=== PATIENT | female | born 1940 | race Caucasian/White ===

== ENCOUNTER 2017-05-18 15:46 | Emergency (ER) | payer MEDICARE, BC ==
[~2017-05-18] VITALS: Ht 157.5 cm; Wt 81.6 kg
[~2017-05-18 15:46] MED LIST: AMLODIPINE BESY10 MG PO; CARVEDILOL12.5 MG PO; CEFDINIR300 MG PO; COMP-AIR NEBUL1 EACH; CYMBALTA30 MG PO; DOXYCYCLINE HY100 MG PO; FUROSEMIDE40 MG PO; LANTUS100 UNITS/ SQ; LEVOTHYROXINE112 MCG PO; NOVOLIN R100 UNIT/1; PREDNISONE5 MG PO; [UNRECOGNIZED DRUG - OTHER] NEB
[2017-05-18] MEDS ORDERED: ASPIRIN 81 MG CHEW TAB PO ONE (19:15)
== END 2017-05-18 19:53 | disposition short-term general hospital (02) ==
LOC: ER 15:46
DX: R51 Headache (principal)

== ENCOUNTER → 2017-07-17 | Day surgery (SDC) | payer MEDICARE, BC ==
[~2017-07-17] VITALS: Ht 152.4 cm; Wt 90.7 kg
[~2017-07-17] MED LIST changes: +LIDOCAINE 1% W/EPINEPHRINE 20 ML VIAL ONE
--- OUTSIDE RECORDS SUMMARY | 2017-07-17 12:29 | XMS REPORT | Continuity of Care Document ---
Author Author [facility] Organization [facility] Address [address] [place] [address] Phone Unavailable Care Team Providers Care Sole Conditioner Name Role Phone ALMAZ NAYLOR PCP Insurance Providers Guarantor Mira Yang Address [address] [place] [address] Email [email or web address] Payer [facility] [email or web address] Policy Number [id number] Subscriber's Name AmeenaMira schrader Relationship 18 Self / Same As Patient Effective Date 14 Payer Medicare A & B Policy Number [id number] Subscriber's Name Mira Yang Relationship 18 Self / Same As Patient Group Number [id number] Group Name RETIRED Effective Date 07 Advance Directives Directive Response Recorded Date/Time Does the patient have an advance directive? No 05/18/17 5:14pm If yes, is advance directive on file with [facility]? No 04/23/14 11:56pm If not on file with [facility] will patient provide a copy? No 05/18/17 5:14pm Do you have a Directive to Physician? No 05/18/17 5:14pm Do you have a Medical Power of Machine Farmworker? No 05/18/17 5:14pm Do you have an out of hospital Do Not Resuscitate Order? No 05/18/17 5:14pm Do you have any special needs we should be aware of? No 05/18/17 5:14pm Do you have a support person here with you today? Yes 05/18/17 5:14pm Did patient receive Notice of Privacy Practices? Yes 05/18/17 5:14pm Did patient receive patient rights and responsibilities? Yes 05/18/17 5:14pm Problems Medical Problem Onset Date Status Hypoxia 04/23/2014 Acute Pneumonia 04/23/2014 Acute Medications Current Home Medications Medication Dose Units Route Directions Days Qty Instructions Start Date Amlodipine Besylate 10 Mg Tablet 5 Mg Oral Every 12 Hours 30 Tab Carvedilol 12.5 Mg Tablet 12.5 Mg Oral Daily 60 Tab Cefdinir (Omnicef) 300 Mg Capsule 1 Cap Oral Twice A Day 10 Days Duloxetine Hcl (Cymbalta) 30 Mg Capsule.dr 60 Mg Oral Daily 30 Cap Furosemide 40 Mg Tablet 40 Mg Oral Daily 30 Tab Insulin Glargine (Lantus) 100 Units/Ml Ml 45 Sub-Q Bedtime Insulin Regular, Human (Novolin R) 100 Unit/1 Ml Vial [id number] 2.5 Ml Nebu 2.5 Ml Nebullizer Rt Q6h 30 Days 05/01/14 Levothyroxine Sodium 112 Mcg Tablet 112 Mcg Oral Daily 30 Tab Prednisone 5 Mg Tablet 5 Mg Oral Daily Past Home Medications Medication Directions Ordered Status Doxycycline Hyclate 100 Mg Capsule, 100 Mg Oral Daily Discontinued Social History Social History Problem Response Recorded Date/Time Onset Date Status Hx Psychiatric Problems No 04/23/2014 11:56pm Not Applicable Not Applicable Hx Eating Disorder No 04/23/2014 11:56pm Not Applicable Not Applicable Hx Substance Use Disorder No 04/23/2014 11:56pm Not Applicable Not Applicable Hx Depression Yes 04/23/2014 11:56pm Not Applicable Not Applicable Hx Alcohol Use Yes 04/23/2014 11:56pm Not Applicable Not Applicable Hx Substance Use Treatment No 04/23/2014 11:56pm Not Applicable Not Applicable Hx Physical Abuse No 04/23/2014 11:56pm Not Applicable Not Applicable Hospital Discharge Instructions No hospital discharge instruction information available. Plan of Care Discharge Date 05/18/17 7:53pm Disposition REQUEST WITHDRAWN FOR MSE Condition at Discharge Stable Forms Provided Work/School Excuse Prescriptions See Medication Section Functional Status No functional status information available. Allergies, Adverse Reactions, Alerts Allergen Type Severity Reaction Status Last Updated Penicillin Allergy Unknown Active 07/16/08 Meperidine Allergy Unknown Active 07/16/08 Cyclobenzaprine Allergy Unknown Active 07/16/08 Immunizations No immunization information available. Vital Signs Acute Vital Signs Vital Response Date/Time Height 5 ft 2 in 05/18/2017 3:54pm Weight 180 lb 05/18/2017 3:54pm Body Mass Index 32.9 kg/m^2 05/18/2017 3:54pm Results No relevant diagnostic test, laboratory data and/or discharge summary information available. Procedures No procedure information available. Encounters Encounter Location Arrival/Admit Date Discharge/Depart Date Attending Provider Departed Emergency Room [facility] 05/18/17 3:46pm 7:53pm LITO BARNARD MD
--- NOTE | 2017-07-17 19:13 | Operative Report ---
DATE OF PROCEDURE: July 17, 2017 INDICATIONS: Palpitations with atrial fibrillation. PROCEDURE PERFORMED: Insertable loop recorder. Left anterior chest was anesthetized using subcutaneous lidocaine. A [employer] LINQ, serial number [id number] was inserted subcutaneously without complications. Skin was approximated using Dermabond. Patient discharged home same day. Job#: [id number] GH
== END | disposition home or self-care (01) ==
LOC: CATH LAB 12:26
PROVIDERS: ATTEND Internal Medicine Interventional Cardiology
DX: I48.91 Unspecified atrial fibrillation (principal); I63.9 Cerebral infarction, unspecified; I20.8 Other forms of angina pectoris; I10 Essential (primary) hypertension; J45.909 Unspecified asthma, uncomplicated; Z79.4 Long term (current) use of insulin
CPT/HCPCS: 33282; C1764

== ENCOUNTER 2018-06-19 21:47 | Observation (INO) | payer MEDICARE, BC ==
[~2018-06-19] VITALS: Ht 157.5 cm; Wt 81.7 kg
[~2018-06-19 21:47] MED LIST changes: -LIDOCAINE 1% W/EPINEPHRINE 20 ML VIAL ONE
--- OUTSIDE RECORDS SUMMARY | 2018-06-19 21:50 | XMS REPORT | Summary of Care ---
Author Author TRISTON Kevin, JOSELINE Gilbert Unknown Address Unknown Phone Unavailable Care Team Providers Care Aerial Gunner Superintendent Name Role Phone NGOZI Newman, JAYY Unavailable Unavailable TRICIA Chowdary, NIKO Unavailable Unavailable DAYDAY Kevin, ALMAZ Edward Unavailable JOJO Kevin, EVA Unavailable Unavailable TRISTON Kevin, JOSELINE Unavailable Unavailable DAYDAY PALMA [place], ALMAZ BOSS Unavailable Unavailable Unavailable Unavailable Functional Status Name Dates Details Functional status health issues are not documented Status: Name Dates Details Cognitive status health issues are not documented Status: Problems Name Dates Details 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, 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) Status: Active Wilhelm's cyst, 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, 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: Active RBBB (right bundle branch block) (426.4, I45.0) Status: Active Breast cancer screening (V76.10, Z12.31) Status: Active Osteoarthritis of one hip, right (715.95, M16.11) Status: Active Flu vaccine need (V04.81, Z23) Status: Active Wheezing on auscultation (786.07, R06.2) Status: Active Mouth ulcers (528.9, K12.1) Status: Active Osteopenia (733.90, M85.80) Status: Active Primary open angle glaucoma of both eyes, mild stage (365.11, H40.1131) Status: Active History of diverticulitis of colon (V12.79, Z87.19) Status: Resolved Mild intermittent asthma without complication (493.90, J45.20) Status: Active Need for hepatitis C screening test (V73.89, Z11.59) Status: Active Other fatigue (780.79, R53.83) Status: Active History of Community acquired pneumonia (486, J18.9) Status: Resolved 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, 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 Abnormal liver enzymes (790.5, R74.8) Status: Active DOPS (diffuse obstructive pulmonary syndrome) (496, J44.9) Status: Active Forgetfulness (780.99, R68.89) Status: Active Lymphedema (457.1, I89.0) Status: Active Psychophysiological insomnia (307.42, F51.04) Status: Active Ocular migraine (346.80, G43.109) Status: Active Numbness and tingling in both hands (782.0, R20.0) Status: Active 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, 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 Stroke of unknown cause (434.91, I63.9) Status: Active Visual field defect (368.40, H53.40) Status: Active Non compliance with medical treatment (V15.81, Z91.19) Status: Active 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, 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 Evelyn albicans infection (112.9, B37.9) Status: Active Acute asthmatic bronchitis (493.90, J45.909) Status: Active Postmenopausal symptoms (627.9, N95.9) Status: Active Acute bacterial bronchitis (466.0, J20.8) Status: Active NITZA on CPAP (327.23, G47.33) Status: Active Acute pain of right knee (719.46, M25.561) Status: Active Recurrent low back pain (724.2, M54.5) Status: Active Dermatitis (692.9, L30.9) Status: Active Stage 3 chronic kidney disease (585.3, N18.3) Status: Active Pacemaker (V45.01, Z95.0) Status: Active Diabetes mellitus type 2, uncontrolled (250.02, E11.65) Status: Active Mixed hyperlipidemia (272.2, E78.2) Status: Active Hypothyroidism, unspecified type (244.9, E03.9) Status: Active Essential (primary) hypertension (401.9, I10) Status: Active Candidal intertrigo (112.3, B37.2) Status: Active Medications Name Dates Details DULoxetine HCl - 60 MG Oral Capsule Delayed Release Particles TAKE 1 CAPSULE DAILY Quantity: 90 MELVIN P.A., JAYY * Start : 19-May-2013 Active Nvtsmldycp-Gvkmitcrjs-VLQN 40-10-25 MG Oral Tablet TAKE 1 TABLET DAILY * Quantity: 90 Refills: 1 JAYY SOLIS * Start : 11-Mar-2018 Active Lantus SoloStar 100 UNIT/ML Subcutaneous Solution Pen-injector INJECT 56 UNITS EVERY EVENING MAY SELF TITRATE UP TO 65 UNITS A DAY * Quantity: 2 Refills: 3 EVA URIBE M.D. * Start : 29-Oct-2013 Active 3 ML Pen (5 Pens) Levothyroxine Sodium 175 MCG Oral Tablet TAKE 1 TABLET BY MOUTH EVERY DAY. * Quantity: 90 Refills: 1 JAYY SOLIS * Start : 12-Jun-2013 Active Furosemide 40 MG Oral Tablet TAKE 1 TABLET BY MOUTH EVERY DAY * Quantity: 90 Refills: 1 NIKO CLARKE N.P. * Start : 18-Feb-2014 Active Levalbuterol HCl - 1.25 MG/0.5ML Inhalation Nebulization Solution INHALE 1 VIAL 4 times daily DX ACUTE ASTHMATIC BRONCHITIS * Quantity: 1 Refills: 1 ALMAZ NAYLOR M.D. * Start : 15-Apr-2014 Active 30 Milliliter Plas Cont Atorvastatin Calcium 40 MG Oral Tablet TAKE 1 TABLET DAILY * Quantity: 1 Refills: 1 JAYY SOLIS * Start : 13-May-2014 Active 90 Tablet Bottle Montelukast Sodium 10 MG Oral Tablet TAKE 1 TABLET BY MOUTH AT BEDTIME. * Quantity: 90 Refills: 1 JAYY SOLIS * Start : 04-Jun-2014 Active BD Pen Needle Elodia U/F 32G X 4 MM For insulin injections 5x per day and as needed for high sugars. * Quantity: 5 Refills: 2 EVA URIBE M.D. * Start : 05-Oct-2015 Active 100 Miscellaneous Box HumuLIN N KwikPen 100 UNIT/ML Subcutaneous Suspension Pen-injector temporary while taking prednisone * Refills: 0 EVA URIBE M.D. * Start : 04-Nov-2015 Active Acetaminophen-Codeine #3 300-30 MG Oral Tablet TAKE 1 TO 2 TABLETS BY MOUTH EVERY 6 HOURS NEEDED FOR PAIN * Quantity: 60 Refills: 0 NIKO CLARKE N.P. * Start : 05-Apr-2017 Active Latanoprost 0.005 % Ophthalmic Solution * Refills: 0 Active 2.5 ML Bottle Budesonide 0.5 MG/2ML Inhalation Suspension USE 1 UNIT DOSE VIA NEBULIZER TWO TIMES A DAY * Quantity: 1 Refills: 1 ALMAZ NAYLOR M.D. * Start : 29-Jun-2017 Active 30 x 2 ML Plas Cont Celecoxib 200 MG Oral Capsule TAKE 1 CAPSULE TWICE DAILY WITH FOOD. * Quantity: 180 Refills: 1 NIKO CLARKE N.P. * Start : 07-Aug-2017 Active Hydrocortisone 2.5 % External Ointment Apply and gently massage into affected area twice daily. * Quantity: 1 Refills: 1 JAYY SOLIS * Start : 21-Aug-2017 Active 20 GM Tube Metoprolol Succinate ER 25 MG Oral Tablet Extended Release 24 Hour TAKE 1 TABLET DAILY. * Quantity: 90 Refills: 2 JOSELINE GOLDSTEIN M.D. * Start : 28-Nov-2017 Active OneTouch Verio In Vitro Strip use to check blood sugar 3x/day before meals * Quantity: 3 Refills: 1 JOSELINE GOLDSTENI M.D. * Start : 28-Nov-2017 Active 100 Strip Box OneTouch Delica Lancets Fine use to check blood sugar 3x/day before meals * Quantity: 3 Refills: 1 JOSELINE GOLDSTEIN M.D. * Start : 28-Nov-2017 Active 100 Unit Box Eliquis 5 MG Oral Tablet 1 po bid * Quantity: 180 Refills: 1 JOSELINE GOLDSTEIN M.D. * Start : 01-Jan-2018 Active NovoLOG FlexPen 100 UNIT/ML Subcutaneous Solution Pen-injector inject 24 u before bf, 20 u before lunch and 20-24 u before dinner MDD:70 units * Quantity: 2 Refills: 1 JOSELINE GOLDSTEIN M.D. * Start : 08-Feb-2018 Active 5 x 3 ML Pen Tresiba FlexTouch 200 UNIT/ML Subcutaneous Solution Pen-injector 56 u sq qhs. Patient may titrate dose to 64 u/day, but must WAIT 8 days to titra te after each change in dose. * Quantity: 1 Refills: 0 JOSELINE GOLDSTEIN M.D. 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) Status: Resolved History of Bilateral Adrenal Hyperplasia (255.2) Status: Resolved History of bradycardia (V12.50, Z86.79) Status: Resolved History of Candidal skin infection (112.3, B37.2) Status: Resolved History of Community acquired pneumonia (486, J18.9) Status: Resolved History of Diarrhea of presumed infectious origin (009.3, R19.7) Status: Resolved History of diverticulitis of colon (V12.79, Z87.19) Status: Resolved History of essential hypertension (V12.59, Z86.79) Status: Resolved History of fatigue (V13.89, Z87.898) Status: Resolved History of Foot pain (729.5, M79.673) Status: Resolved History of Left knee pain (719.46, M25.562) Status: Resolved History of Limb pain (729.5, M79.609) Status: Resolved History of Localized primary osteoarthritis of lower leg, left (715.16, M17.12) Status: Resolved History of Lung Cancer (V10.11) Status: Resolved History of Non-intractable cyclical vomiting with nausea (536.2, G43.A0) Status: Resolved History of persistent cough (V12.69, Z87.09) Status: Resolved History of pneumococcal vaccination (V49.89, Z92.29) Status: Resolved History of pneumonia (V12.61, Z87.01) Status: Resolved History of pneumonia (V12.61, Z87.01) Status: Resolved History of Pre-operative clearance (V72.84, Z01.818) Status: Resolved History of Shoulder impingement (726.2, M75.40) Status: Resolved History of Splinter of hand (914.6, S60.559A) Status: Resolved History of TIA (transient ischemic attack) (V12.54, Z86.73) Status: Resolved Procedures Procedure Dates Details [QL] CMP W/EGFR Date: 01-Apr-2018 [Q] LIPID PANEL WITH REFLEX TO DIRECT LDL Date: 01-Apr-2018 [[facility]] TSH, 3RD GENERATION Date: 01-Apr-2018 History of Splenectomy Completed History of Laminectomy Cervical Completed History of Total Abdominal Hysterectomy Completed History of Appendectomy Completed History of Cataract Surgery Completed History of Cholecystectomy Completed History of Adrenal surgical procedure Completed History of Pacemaker Permanent Placement Completed Immunization Name Dates Details Fluzone INJ Lot #: [id number] on: 09-Jan-2013 Fluzone INJ Lot #: [id number] on: 08-Jan-2014 Prevnar 13 Intramuscular Suspension Lot #: [id number] on: 24-Nov-2014 Fluzone Preservative Free 0.5 ML EMILY Lot #: [id number] on: 20-Jan-2015 Fluzone High-Dose 0.5 ML Intramuscular Suspension Prefilled Syringe Lot #: [id number] on: 18-Jan-2016 Fluzone High-Dose 0.5 ML Intramuscular Suspension Prefilled Syringe Lot #: [id number] on: 06-Feb-2017 Pneumovax 23 25 MCG/0.5ML Injection Injectable Lot #: [id number] on: 20-Feb-2017 Fluzone High-Dose 0.5 ML Intramuscular Suspension Prefilled Syringe Lot #: [id number] on: 18-Feb-2018 Family History Name Dates Details Family history of diabetes mellitus (V18.0, Z83.3) Status: Active Name Dates Details Family history of diabetes mellitus (V18.0, Z83.3) Status: Active Social History Name Dates Details - Status: Name Dates Details Never smoker Vital Signs Date Test Result Details No Known Vitals to report Results Date Description Value Details Results not documented Plan of Care Name Dates Details Planned Observations Planned Goals not documented Instructions Name Dates Details Instructions not documented Encounters Appointment; NIKO CLARKE NP Encounter Diagnosis: Problem not documented On: 24-May-2016 15:00 Appointment; NIKO CLARKE NP Encounter Diagnosis: Problem not documented On: 17-Jan-2017 16:30 Appointment; NIKO CLARKE NP Encounter Diagnosis: Problem not documented On: 06-Feb-2017 7:30 Appointment; NIKO CLARKE NP Encounter Diagnosis: Problem not documented On: 20-Feb-2017 13:00 Appointment; NIKO CLARKE NP Encounter Diagnosis: Problem not documented On: 07-Mar-2017 8:45 Appointment; NIKO CLARKE NP Encounter Diagnosis: Problem not documented On: 14-Mar-2017 11:15 Appointment; NIKO CLARKE NP Encounter Diagnosis: Problem not documented On: 20-Mar-2017 15:00 Appointment; ELDER HARRIS M.D. Encounter Diagnosis: Problem not documented On: 12-Apr-2017 14:45 Appointment; TIFFANIE SCHWARTZ M.D. Encounter Diagnosis: Problem not documented On: 12-Apr-2017 16:00 Appointment; TIFFANIE SCHWARTZ M.D. Encounter Diagnosis: Problem not documented On: 26-Apr-2017 16:00 Appointment; NIKO CLARKE NP Encounter Diagnosis: Problem not documented On: 11-May-2017 15:00 Appointment; YESI MARINELLI M.D. Encounter Diagnosis: Problem not documented On: 19-May-2017 10:30 Appointment; YESI MARINELLI M.D. Encounter Diagnosis: Problem not documented On: 13-Jun-2017 10:30 Appointment; ALMAZ NAYLOR M.D. Encounter Diagnosis: Problem not documented On: 29-Jun-2017 15:00 Appointment; JOSESITO RODRIGUEZ P.A. Encounter Diagnosis: Problem not documented On: 02-Jul-2017 13:45 Appointment; NIKO CLARKE NP Encounter Diagnosis: Problem not documented On: 07-Aug-2017 17:00 Appointment; JAYY MELVIN P.A. Encounter Diagnosis: Problem not documented On: 20-Aug-2017 14:30 Appointment; JAYY MELVIN P.A. Encounter Diagnosis: Problem not documented On: 27-Aug-2017 8:30 Appointment; SHANIKA BARKER M.D. Encounter Diagnosis: Problem not documented On: 21-Sep-2017 11:15 Appointment; JOSE LUIS DEVICE Encounter Diagnosis: Problem not documented On: 08-Nov-2017 14:15 Appointment; SHANIKA BARKER M.D. Encounter Diagnosis: Problem not documented On: 23-Nov-2017 11:00 Appointment; JOSELINE GOLDSTEIN M.D. Encounter Diagnosis: Problem not documented On: 28-Nov-2017 13:00 Appointment; JANET HARTMAN RD Encounter Diagnosis: Problem not documented On: 11-Dec-2017 10:00 Appointment; [facility], DEVICE Encounter Diagnosis: Problem not documented On: 14-Dec-2017 9:00 Appointment; JOSELINE GOLDSTEIN M.D. Encounter Diagnosis: Problem not documented On: 01-Jan-2018 14:00 Appointment; ALMAZ NAYLOR M.D. Encounter Diagnosis: Problem not documented On: 18-Feb-2018 15:15 Appointment; JAYY MELVIN P.A. Encounter Diagnosis: Problem not documented On: 01-Apr-2018 14:15
--- NOTE | 2018-06-19 23:00 | NUR ---
Walking rounds completed with Justin marketing researcher RN. Pt is in no acute distress at this time.
[2018-06-19 23:03] LABS: BASOPHILS % 0.2 % (0.0-1.0); EOSINOPHILS # (AUTO) 0.1 (0.0-0.4); LYMPHOCYTES # (AUTO) 3.1 (1.0-3.2); LYMPHOCYTES % 28.9 % (18.0-39.1); MEAN CORPUSCULAR HEMOGLOBIN 22.8 pg (28-32); MEAN CORPUSCULAR HGB CONC 29.6 g/dL (31-35); MEAN CORPUSCULAR VOLUME 77.2 fL (81-99); MONOCYTES # (AUTO) 0.7 (0.2-0.8); MONOCYTES % 6.4 % (4.4-11.3); NEUTROPHILS # (AUTO) 6.8 (2.1-6.9); NEUTROPHILS % 63.1 % (38.7-80.0); PLATELET COUNT 345 x10e3/uL (140-360); RED BLOOD COUNT 1.84 x10e6/uL (3.6-5.1); RED CELL DISTRIBUTION WIDTH 16.6 % (11.7-14.4)
[2018-06-19 23:11] LABS: HEMATOCRIT 14.2 % (34.2-44.1); HEMOGLOBIN 4.2 g/dL (12.0-16.0)
[2018-06-19 23:22] LABS: ALBUMIN 2.6 g/dL (3.5-5.0); ALBUMIN/GLOBULIN RATIO 0.7 (0.8-2.0); ANION GAP 15.2 mmol/L (8-16); CALCIUM 9.1 mg/dL (8.4-10.2); CREATININE, SERUM 1.67 mg/dL (0.57-1.11); POTASSIUM 4.2 mmol/L (3.5-5.1)
--- NOTE | 2018-06-19 23:24 | NUR ---
MD AWARE OF CRITICAL HEMOGLOBIN/HEMATOCRIT
[2018-06-19] MEDS ORDERED: SODIUM CHLORIDE 0.9% 250ML 250 ML IV ONE (23:30)
--- NOTE | 2018-06-19 23:43 | NUR ---
PATIENTS [facility] GETTING HOME MEDICATION LIST FROM HOME AT THIS MOMENT, WILL COME BACK WITH FULL LIST.
[2018-06-19 23:50] VITALS: BP 128/60
--- NOTE | 2018-06-19 23:50 | NUR ---
patient is a new admit that arrived via stretcher. patient is awake and talking. patient has been helped into the bed. bed is in lowest position and call barrios is within reach. will continue to monitor patient.
[2018-06-20] VITALS (7 sets, daily range): BP systolic 128–167; BP diastolic 60–76
--- NOTE | 2018-06-20 00:25 | NUR ---
unable to begin admission process as there is a problem with registering the patient. ER notified. ER will rectify the problem.
--- NOTE | 2018-06-20 01:30 | NUR ---
patient registration issues have been resolved. admission process is complete and blood is about to be picked up from lab.
[2018-06-20] MEDS ORDERED: SODIUM CHLORIDE 0.9% 250ML 250 ML ONE ×4 (01:47→15:26)
--- NOTE | 2018-06-20 01:55 | NUR ---
blood transfusion has begun. patient is tolerating procedure well. no adverse reactions noted. will continue to monitor patient.
[2018-06-20] MEDS ORDERED: MONTELUKAST SOD10 MG PO (02:43)
[2018-06-20] MEDS ORDERED: NOVOLOG100 UNIT/1 SQ (02:43)
[2018-06-20] MEDS ORDERED: LEVOTHYROXINE112 MCG PO (02:43)
[2018-06-20] MEDS ORDERED: eliquis PO (02:43)
[2018-06-20] MEDS ORDERED: tresiba SQ (02:43)
[2018-06-20] MEDS ORDERED: TRIBENZOR 40-11 EAC1 PO (02:43)
[2018-06-20] MEDS ORDERED: ATORVASTATIN CA20 MG PO (02:43)
--- NOTE | 2018-06-20 04:43 | NUR ---
1st unit of blood is done transfusing. patient tolerated procedure well. no adverse reaction noted. will continue to monitor patient.
--- NOTE | 2018-06-20 05:22 | NUR ---
Immediately prior to second unit of blood starting to transfuse patients blood pressure was noted to be 187/84 heart rate 80. On-call MD notified. received new order for hydralazine 5mg IV q4 hours for blood pressure greater than 170. Doctor states it is ok to transfuse second unit of blood once patient receives hydralazine IV. will continue to monitor patient's blood pressure.
--- NOTE | 2018-06-20 05:28 | NUR ---
patient has been given prn hydralazine for elevated blood pressure. will continue to monitor patients blood pressure.
[2018-06-20] MEDS: HYDRALAZINE HCL 20 MG/ML VIAL IV PRN ×3 (05:30→15:30)
--- NOTE | 2018-06-20 05:50 | NUR ---
patient's blood pressure has been reassessed and found to be 152/67 heart rate 80. will continue to monitor patients blood pressure.
--- NOTE | 2018-06-20 06:50 | NUR ---
REPORT GIVEN TO DAY NURSE. PATIENT IS RESTING COMFORTABLY IN BED. BED IS IN LOWEST POSITION AND CALL MILLER IS WITHIN REACH. NO COMPLAINTS OF PAIN OR DISCOMFORT NOTED.
--- NOTE | 2018-06-20 07:25 | NUR ---
patient up in bed, on Blood transfusion, not in any distress, call light in reach
--- NOTE | 2018-06-20 08:26 | NUR ---
Blood transfusion 2nd unit done, no adverse reaction noted, patient up in bed eating breakfast
--- NOTE | 2018-06-20 10:54 | NUR ---
3 rd unit of blood has started @10:30, no reaction noted in 15 min, keep monitoring
--- NOTE | 2018-06-20 13:06 | NUR ---
3rd unit of Blood unit has done, no adverse reaction noted, denies any chest pain or SOB, call light in reach
--- NOTE | 2018-06-20 13:43 | NUR ---
SOCIAL WORK INITIAL ASSESSMENT Senior Adults Director to bedside to discuss plan of care with patient/family. CM/SW role and care transitions discussed. Anticipated discharge plan discussed along with duration of care. CM/SW discussed patients right to make decisions in care. CM/SW work hours given. Patient lives: IN HOUSE WITH SON AND DAUGHTER IN LAW Admit/Transfer: VIA ED POA/Emergency contact: DAUGHTER IN LAW CHANDU ARANGO [phone] Current/Previous Home Health: NONE PCP/Follow-up Care: DAYDAY Current/Previous DME: [facility] Other Services: NONE Employment Status: RETIRED Areas of Concerns: WALKS SLOWLY UNTIL ABLE TO GET MOVING Referral Needs: NONE Education Needs: NONE IMM/MARSH given and signed (if applicable): MARSH Goal for discharge: RETURN HOME WITH FAMILY CM/SW left business card at the bedside with contact information. Name and number was also written on the patients whiteboard. Patient verbalized understanding of discussion. CM will follow-up with ongoing discharge and transition of care needs.
--- NOTE | 2018-06-20 14:02 | NUR ---
Notified Dr Montano regarding renewing home medication, he stated he will check it when he log in to the system,
[2018-06-20] MEDS ORDERED: DEXTROSE 50% SYRINGE 50 ML IV PRN (17:00)
--- NOTE | 2018-06-20 17:46 | History and Physical ---
HISTORY OF PRESENT ILLNESS: This is a 77-year-old woman with a history of obesity, hypertension, diabetes mellitus, hyperlipidemia, atrial fibrillation, and prior vocal cord and adrenal gland tumors, who presented to the emergency department after being told that she was anemic. The patient was seen in the clinic yesterday for fatigue, shortness of breath, and appeared pale in appearance. CBC showed her hemoglobin was 4.4 and she was told to present to the emergency department. She states that she had mild nosebleeds a few days ago, however, denies any massive hemorrhage. She otherwise denies any hematemesis, blood with coughing, abdominal pain, rashes, blood in her stool or urine. PAST MEDICAL HISTORY: As stated above. PAST SURGICAL HISTORY: Pacemaker implantation. PAST FAMILY HISTORY: No premature coronary artery disease or sudden cardiac . SOCIAL HISTORY: No illicit drug use, alcohol use, or tobacco use. ALLERGIES: PENICILLIN, CYCLOBENZAPRINE, MEPERIDINE. MEDICATIONS: See medication reconciliation form. PHYSICAL EXAMINATION: VITAL SIGNS: Temperature is 97.3, heart rate is 84, respirations are 18, blood pressure is 167/72, and oxygen saturation is 97% on room air. GENERAL: She is a well-appearing elderly woman, lying comfortably in bed. HEENT: Head is normocephalic, atraumatic. Eyes, the extraocular muscles are intact. Conjunctivae are clear. NECK: No JVD. No bruits. CARDIOVASCULAR: Regular rate and rhythm. Normal S1 and S2. LUNGS: Clear to auscultation. ABDOMEN: Soft, nontender. EXTREMITIES: No edema. VASCULAR: 2+ pulses. LABORATORY DATA: Reviewed. Hemoglobin 4.2, platelets 345, white blood cell count 10.4. Creatinine is 1.67, sodium is 128, albumin is 2.6. ASSESSMENT: 1. Acute symptomatic anemia. 2. History of atrial fibrillation, on anticoagulation. 3. Presence of a permanent pacemaker. 4. Hypertension. 5. Hyperlipidemia. 6. Hyponatremia. 7. Chronic kidney disease. 8. Diabetes mellitus. RECOMMENDATIONS: We will change the attending to her Internal Medicine physician. The patient is receiving packed red blood cells. We will send anemia studies with ferritin, iron, fecal occult, peripheral smear, and defer all other workup to Internal Medicine. The patient does not appear to have any acute cardiology complications at this point in time. We will fluid restrict given her hyponatremia. We will resume her antihypertensives and diabetic medications. We will hold anticoagulation given the significant amount of anemia. DO ROSEANNE Webb/FLORECITA /[id number]
--- NOTE | 2018-06-20 18:55 | NUR ---
3 rd unit of blood finished. no adverse reaction noted, patient resting in bed, keep monitoring
--- NOTE | 2018-06-20 19:00 | NUR ---
received report from day nurse. patient is resting in bed. bed is in lowest position and call barrios is within reach. will continue to monitor patient.
[2018-06-20] MEDS: AMLODIPINE BESYLATE 10 MG TAB PO SCH (19:09)
[2018-06-20] MEDS: CARVEDILOL 12.5 MG TAB PO SCH (19:09)
--- NOTE | 2018-06-20 20:40 | NUR ---
Attending MD paged in regards as to whether MD wants to have labs ordered for the patient.
--- NOTE | 2018-06-20 20:51 | NUR ---
Physician called back and states he does not have access to the patient's account. Physician states it wont be necessary to do any further lab work as she has received 4 units of blood, and he does not foresee any need for more blood. Physician inquired on whether patient was taking any blood thinners. physician doesn't want patient to restart blood thinners. Physician is ok with blood pressure medications being restarted. will continue to monitor patient.
[2018-06-20] MEDS: INSULIN LISPRO 100 UNIT/1 ML 3ML VIAL SQ SCH (22:36)
[2018-06-21] VITALS (8 sets, daily range): BP systolic 123–176; BP diastolic 57–79
--- NOTE | 2018-06-21 06:49 | NUR ---
report given to day nurse. patient is resting comfortably in bed. bed is in lowest position and call barrios is within reach.
[2018-06-21] MEDS: INSULIN LISPRO 100 UNIT/1 ML 3ML VIAL SQ SCH ×4 (07:30→21:36)
[2018-06-21] MEDS: CARVEDILOL 12.5 MG TAB PO SCH ×2 (08:34→17:19)
[2018-06-21] MEDS: AMLODIPINE BESYLATE 10 MG TAB PO SCH (08:34)
[2018-06-21 10:31] LABS: BASOPHILS # (AUTO) 0.1 (0.0-0.1); BASOPHILS % 0.6 % (0.0-1.0); EOSINOPHILS # (AUTO) 0.4 (0.0-0.4); EOSINOPHILS % 3.5 % (0.0-6.0); HEMATOCRIT 32.1 % (34.2-44.1); HEMOGLOBIN 10.3 g/dL (12.0-16.0); MEAN CORPUSCULAR HEMOGLOBIN 26.8 pg (28-32); MEAN CORPUSCULAR HGB CONC 32.1 g/dL (31-35); MEAN CORPUSCULAR VOLUME 83.6 fL (81-99); MONOCYTES % 9.1 % (4.4-11.3); NEUTROPHILS # (AUTO) 6.6 (2.1-6.9); NEUTROPHILS % 59.4 % (38.7-80.0); PLATELET COUNT 279 x10e3/uL (140-360); RED BLOOD COUNT 3.84 x10e6/uL (3.6-5.1); RED CELL DISTRIBUTION WIDTH 17.3 % (11.7-14.4)
[2018-06-21 10:40] LABS: ANION GAP 13.5 mmol/L (8-16); CALCIUM 9.6 mg/dL (8.4-10.2); CREATININE, SERUM 1.58 mg/dL (0.57-1.11); POTASSIUM 4.5 mmol/L (3.5-5.1)
--- NOTE | 2018-06-21 12:07 | Diagnostic Imaging Report ---
ADDENDUM #1 ADDENDUM: Multiple soft tissue nodules in the right upper quadrant of the abdomen, some of which contain coarse calcifications are indeterminate on this exam. However report from CT Chest on 07/14/2008 also mentions nodules at this location (although images are not available for review), and therefore likely of benign etiology. The patient is status post splenectomy. Findings could represent splenosis if there is a history of splenic trauma or intraoperative rupture. Consider dedicated contrast enhanced CT or MRI if clinically indicated. Signed by: Dr. Madai Jimenez MD on 06/23/2018 10:40 AM ORIGINAL REPORT EXAM: CT Abdomen and Pelvis WITHOUT contrast INDICATION: Anemia, suspected GI bleed. COMPARISON: None. TECHNIQUE: Abdomen and pelvis were scanned utilizing a multidetector helical scanner from the lung base to the pubic symphysis without administration of IV contrast. Absence of intravenous contrast decreases sensitivity for detection of focal lesions and vascular pathology. Coronal and sagittal reformations were obtained. Routine protocol was performed. IV CONTRAST: None. ORAL CONTRAST: Water RADIATION DOSE: Total DLP: 670.3 mGy*cm Dose modulation, iterative reconstruction, and/or weight based adjustment of the mA/kV was utilized to reduce the radiation dose to as low as reasonably achievable. COMPLICATIONS: None FINDINGS: LINES and TUBES: None. LOWER THORAX: Partially seen pacemaker leads. Coronary atherosclerosis. Trace bilateral pleural effusions, left greater than right. There are clustered dependent nodules in the left lower lobe base, measuring up to 6 mm on series 2, image 11. There is dependent atelectatic changes. There is consolidative opacity seen in the lingula with air bronchogram. There is a 3 mm nodule in the right lower lobe on image 3. HEPATOBILIARY: Subcentimeter left hepatic lobe lesion is too small to characterize, but likely represents a cyst. No biliary ductal dilation. Status post cholecystectomy. SPLEEN: Status post splenectomy. PANCREAS: No focal masses or ductal dilatation. ADRENALS: No adrenal nodules. Surgical clips are present adjacent to the bilateral adrenal glands, and there may have been partial bilateral adrenalectomies. KIDNEYS/URETERS: No hydronephrosis. There is a left mid renal surgical clip. Multiple right renal simple cysts. Other subcentimeter bilateral renal hypodensities are too small to characterize, but likely represent cysts. There is a hypodense lesion measuring 1.4 cm in the left mid pole with adjacent coarse calcification on series 2, image 26. GI TRACT: No abnormal distention, wall thickening, or evidence of bowel obstruction. PELVIC ORGANS/BLADDER: The bladder is unremarkable. The uterus is absent. LYMPH NODES: No lymphadenopathy. VESSELS: There is moderate atherosclerotic disease in the aorta and major arterial branches. PERITONEUM / RETROPERITONEUM: No free air or fluid. BONES/SOFT TISSUES: No suspicious lytic or blastic lesions. No acute bony abnormality. IMPRESSION: No CT evidence of hemorrhage within the abdomen or pelvis, however evaluation is limited in the absence of IV contrast. Trace bilateral pleural effusions. Clustered nodules in the left lower lobe and consolidative opacity in the lingula, suggestive of infectious process. A follow-up chest CT is suggested in 2-3 months to assess for resolution. Left midpole renal hypodensity with adjacent coarse calcification, which could represent a complex cyst. A renal ultrasound is suggested for further evaluation. Signed by: Dr. Madai Jimenez MD on 06/21/2018 12:03 PM
--- NOTE | 2018-06-21 12:13 | Diagnostic Imaging Report ---
EXAMINATION: CHEST 2 VIEWS INDICATION: Anemia. COMPARISON: CT abdomen/pelvis 06/21/2018. Report from CT chest 04/25/2014, although images are not available for review. FINDINGS: TUBES and LINES: Left-sided dual-chamber pacemaker with leads overlying the right atrium and right ventricle. Multiple EKG leads and wires overlie the thorax. LUNGS: Lungs are well inflated. There are mild patchy opacities in the lung bases, left greater than right. Pulmonary nodules noted in the left lower lobe on abdominal CT from 06/21/2018 are not well seen by radiograph. No evidence of pulmonary edema. There is central vascular congestion. PLEURA: No pleural effusion or pneumothorax. HEART AND MEDIASTINUM: The cardiomediastinal silhouette is unremarkable. Atherosclerotic vascular calcifications. BONES AND SOFT TISSUES: No acute osseous abnormality. UPPER ABDOMEN: No free air under the diaphragm. Surgical clips project over the upper abdomen. IMPRESSION: Patchy opacities at the lung bases, left greater than right, which could represent atelectasis or pneumonia in the appropriate clinical context. Pulmonary nodules noted in the left lower lobe on abdominal CT from 06/21/2018 are not well seen by radiograph. A follow-up chest CT is suggested in 2-3 months to assess for resolution. Signed by: Dr. Madai Jimenez MD on 06/21/2018 12:10 PM
--- NOTE | 2018-06-21 21:40 | NUR ---
PATIENT CONDITION STABLE WITHOUT RESPIRATORY DISTRESS, SHE DENIES PAIN. BRUISES TO THE ARMS, CALL LIGHT WITHIN EASY REACH, PATIENT INSTRUCTED TO CALL FOR ASSISTANCE NEEDED.
[2018-06-22] VITALS (8 sets, daily range): BP systolic 130–170; BP diastolic 58–77
--- NOTE | 2018-06-22 01:44 | NUR ---
DR Obey MARTINEZ SAW AND EXAM THE PATIENT, HE DISCUSSED WITH HER THE PLAN FOR COLONOSCOPY IN THE AFTERNOON TODAY.
--- NOTE | 2018-06-22 04:21 | NUR ---
PATIENT IS ASLEEP, SHE'S EASY TO AROUSE. NO DISTRESS OBSERVED, SHE DENIES PAIN. CALL LIGHT WITHIN EASY REACH, INSTRUCTED TO CALL FOR ASSISTANCE NEEDED.
[2018-06-22] MEDS ORDERED: CITRATE OF MAGNESIA 300ML BOTTLE PO ONE ×2 (05:00→09:00)
[2018-06-22] MEDS ORDERED: BISACODYL 5 MG TAB EC PO ONE ×3 (05:00→06:00)
[2018-06-22 05:53] LABS: BASOPHILS # (AUTO) 0.1 (0.0-0.1); BASOPHILS % 0.5 % (0.0-1.0); EOSINOPHILS # (AUTO) 0.4 (0.0-0.4); EOSINOPHILS % 3.5 % (0.0-6.0); HEMATOCRIT 31.7 % (34.2-44.1); LYMPHOCYTES # (AUTO) 3.5 (1.0-3.2); LYMPHOCYTES % 30.2 % (18.0-39.1); MEAN CORPUSCULAR HEMOGLOBIN 26.1 pg (28-32); MEAN CORPUSCULAR HGB CONC 31.5 g/dL (31-35); MEAN CORPUSCULAR VOLUME 82.8 fL (81-99); MONOCYTES # (AUTO) 1.1 (0.2-0.8); MONOCYTES % 9.6 % (4.4-11.3); NEUTROPHILS # (AUTO) 6.5 (2.1-6.9); NEUTROPHILS % 55.9 % (38.7-80.0); PLATELET COUNT 271 x10e3/uL (140-360); RED BLOOD COUNT 3.83 x10e6/uL (3.6-5.1); RED CELL DISTRIBUTION WIDTH 17.4 % (11.7-14.4)
[2018-06-22 06:16] LABS: ANION GAP 11.1 mmol/L (8-16); CALCIUM 9.8 mg/dL (8.4-10.2); CREATININE, SERUM 1.58 mg/dL (0.57-1.11); POTASSIUM 4.1 mmol/L (3.5-5.1)
[2018-06-22 06:33] LABS: FERRITIN 16.53 ng/mL (4.63-204.00)
[2018-06-22 07:12] LABS: FOLATE 9.8 ng/mL (7.0-15.4)
[2018-06-22] MEDS: INSULIN LISPRO 100 UNIT/1 ML 3ML VIAL SQ SCH ×3 (07:30→21:00)
[2018-06-22] MEDS: CARVEDILOL 12.5 MG TAB PO SCH (09:12)
[2018-06-22] MEDS: HYDRALAZINE HCL 20 MG/ML VIAL IV PRN (09:12)
[2018-06-22] MEDS: AMLODIPINE BESYLATE 10 MG TAB PO SCH (09:12)
--- NOTE | 2018-06-22 11:50 | NUR ---
Spoke with Dr. Obey Darling and orders for one more Mag citrate as patient still putting out brown stool.
[2018-06-22] MEDS ORDERED: CITRATE OF MAGNESIA 300ML BOTTLE PO NR (12:00)
[2018-06-22] MEDS ORDERED: MIDAZOLAM HCL 2 MG/2 ML VIAL ONE (13:13)
[2018-06-22] MEDS ORDERED: FENTANYL CITRATE/PF 100MCG/2 ML INJ ONE (13:13)
--- NOTE | 2018-06-22 13:20 | Progress Note ---
DATE: Cardiology Progress Note SUBJECTIVE: The patient feeling better after blood transfusion. No chest pain or shortness of breath. OBJECTIVE: VITAL SIGNS: Temperature 96, heart rate is 72, respirations 20, blood pressure is 176/76, and oxygen saturation 98% on room air. GENERAL: She is a well-appearing elderly woman, lying comfortably in bed. CARDIOVASCULAR: She has regular rate and rhythm. No murmurs. LUNGS: Clear to auscultation. ABDOMEN: Soft and nontender. EXTREMITIES: No edema. LABORATORY VALUES: Hemoglobin 10.3. Creatinine 1.58. CT of abdomen and pelvis showed no hemorrhage in the abdomen or pelvis. IMPRESSION: 1. Acute symptomatic anemia. 2. Positive fecal occult blood test. 3. Paroxysmal atrial fibrillation. 4. Presence of a permanent pacemaker. 5. Hypertension. 6. Hyperlipidemia. 7. Diabetes mellitus. RECOMMENDATIONS: Hemoglobin has stabilized after blood transfusion. Gastroenterology following. Increase her antihypertensive medications. Continue to hold anticoagulation given the significant amount of anemia. DO ROSEANNE Webb/MODL /[id number]
--- NOTE | 2018-06-22 13:35 | Progress Note ---
DATE: 06/22/2018 Cardiology Progress Note SUBJECTIVE: No major events overnight. OBJECTIVE: VITAL SIGNS: Temperature afebrile, heart rate 65, respiratory rate 18, blood pressure 170/74, saturating 96% on room air. GENERAL: Elderly white female, in no acute distress. CARDIOVASCULAR: Regular rate and rhythm. No murmurs, rubs, or gallops. LUNGS: Clear to auscultation bilaterally. ABDOMEN: Soft, nontender, nondistended. NEURO and PSYCH: Alert and oriented to person, place, and time. Normal affect. INPATIENT MEDICATIONS: Reviewed. LABORATORY DATA: Reviewed. IMAGING DATA: Reviewed. TELEMETRY DATA: Reviewed, shows normal sinus rhythm. ASSESSMENT: 1. Acute symptomatic anemia. 2. Atrial fibrillation, on anticoagulation. 3. Status post permanent pacemaker placement. 4. Hypertension. 5. Hyperlipidemia. 6. Chronic kidney disease. 7. Diabetes. RECOMMENDATIONS: The patient is doing well from cardiovascular standpoint. Continue her home cardiovascular medications. Anticoagulation has been stopped given severe anemia. Awaiting GI workup. The patient will be at low risk for cardiovascular events for any GI procedures. No further cardiovascular workup needed at this time. Thank you for this consult. We will continue to follow. MD JAVID Jameson/FLORECITA /[id number]
[2018-06-22] MEDS ORDERED: PROPOFOL IV EMULSION 10 MG/ML 50 ML VIAL ONE (15:13)
[2018-06-22] MEDS ORDERED: LIDOCAINE HCL 2% LOCAL INJ 5 ML SDV VIAL INJ ONE (15:13)
[2018-06-22] MEDS ORDERED: GLUCAGON FOR INJ 1 MG VIAL ONE (15:13)
[2018-06-22] MEDS ORDERED: HYOSCYAMINE SULFATE 0.5 MG/ML INJ ONE (15:13)
--- NOTE | 2018-06-22 16:15 | NUR ---
Patient picked up for procedure at this time
--- NOTE | 2018-06-22 19:09 | NUR ---
Patient still out for procedure, report given to on coming nurse
--- NOTE | 2018-06-22 20:23 | NUR ---
PATIENT IS DROWSY, MOSTLY ASLEEP BUT SHE'S EASY TO AROUSE. NO RESPIRATORY DISTRESS OBSERVED, PATIENT DENIES PAIN. BLOOD PRESSURE REASSESSED WITH READING OF 161/77, HEART RATE 68. BED ALARM ON, CALL LIGHT WITHIN EASY REACH, PATIENT INSTRUCTED TO CALL FOR ASSISTANCE BEFORE GETTING OUT OF THE BED DUE TO HER DROWSINESS.
--- NOTE | 2018-06-22 22:21 | NUR ---
PATIENT ASSISTED TO THE RESTROOM TO VOID, SHE'S NOW BACK IN BED WITH BED ALARM ON AND CALL LIGHT WITHIN EASY REACH. DIABETIC SNACKS GIVEN TO THE PATIENT.
[2018-06-23] VITALS (7 sets, daily range): BP systolic 148–168; BP diastolic 63–77
--- NOTE | 2018-06-23 01:15 | NUR ---
SOUNDLY ASLEEP, NO DISTRESS OBSERVED. BED ALARM ON, CALL LIGHT WITHIN EASY REACH.
--- NOTE | 2018-06-23 04:33 | NUR ---
PATIENT ASSISTED TO THE RESTROOM, SHE'S NOW BACK IN BED. SHE'S STILL A LITTLE UNSTEADY ON GAIT, CALL LIGHT WITHIN EASY REACH AND BED ALARM ON. SHE DENIES SHORTNESS OF BREATH BUT C/O THROAT IRRITATION.
--- NOTE | 2018-06-23 07:20 | NUR ---
Walking rounds done. Patient resting in NAD. She was assisted to bathroom and back to bed. POC discussed. Patient instructed to call for assistance as needed and verbalized understanding. Bed in lowest position, locked and call barrios within reach.
[2018-06-23] MEDS: INSULIN LISPRO 100 UNIT/1 ML 3ML VIAL SQ SCH ×4 (07:30→21:48)
--- NOTE | 2018-06-23 08:48 | Operative Report ---
DATE OF PROCEDURE: 06/22/2018 SURGEON: Carlos Darling MD PROCEDURES: Esophagogastroduodenoscopy with biopsies and a colonoscopy with polypectomy. INDICATIONS FOR EGD: Anemia and history of melena. INDICATIONS FOR COLONOSCOPY: Anemia and history of colon polyps. MEDICATIONS: The patient was done under MAC, please see anesthesiologist's note. PROCEDURE IN DETAIL: With the patient in left lateral decubitus position, a flexible fiberoptic Olympus gastroscope was introduced into the esophagus under direct visualization without any difficulty. There was some patchy erythema noted in distal esophagus. The scope was then advanced with ease into the stomach and mucosa overlying the antrum revealed multiple minute gastric ulcers without active bleeding or stigmata of recent hemorrhage. Biopsies were obtained. Pylorus was of normal contour and shape, was intubated with ease and the scope was advanced all the way to the second portion of the duodenum. Biopsies were obtained from the proximal second portion to rule out sprue. There was an approximately 8 mm sessile lesion distal to the ampulla and that was biopsied. Two nodules were noted in the duodenal bulb and those were biopsied. The scope was then withdrawn back into the stomach and retroflexed. Mucosa overlying the fundus and cardia appeared to be within normal limits. The scope was then straightened out, it was subsequently withdrawn. The patient tolerated the procedure well. IMPRESSION: 1. Distal esophagitis. 2. Gastritis. 3. Gastric ulcers, antrum, minute multiple, biopsies obtained. 4. Duodenal bulb nodule, biopsied. 5. Approximately 8 mm sessile polypoid lesion distal to ampulla, biopsied. 6. Rule out sprue. PLAN: Followup histology. Initiate Protonix 40 mg one p.o. before meals b.i.d. and Carafate 1 g p.o. before meals t.i.d. and at bedtime. The patient was then turned around after adequate lubrication of the anal canal, a flexible fiberoptic Olympus colonoscope was inserted into the rectum with ease and advanced all the way to the cecum. The colon was excessively tortuous, sharply angulated and spastic and negotiated with difficulty. The scope was then withdrawn slowly. Whatever was visualized, the mucosa overlying the cecum, ascending colon appeared to be within normal limits. One polyp was snared from the transverse colon. One polyp was snared from the descending colon. One polyp was hot biopsied from the sigmoid colon. The rectum overall appeared to be within normal limits. The scope was then retroflexed into the distal rectum. Small internal hemorrhoids were noted, none of which was actively bleeding. The scope was then straightened out and it was subsequently withdrawn. The patient tolerated the procedure well. IMPRESSION: 1. Colon excessively tortuous and spastic, suboptimally visualized. 2. Transverse colon polyp snared. 3. Descending colon polyp snared. 4. Sigmoid colon polyp, hot biopsied. 5. Small internal hemorrhoids, none actively bleeding. PLAN: Followup histology. The patient might benefit from an air-contrast barium enema. We will need small bowel series. The patient might benefit from a followup colonoscopy in 3 years. Carlos Darling MD [facility] [place] /[id number] cc: John Mcneil MD
[2018-06-23] MEDS: CARVEDILOL 12.5 MG TAB PO SCH ×2 (09:00→17:07)
[2018-06-23] MEDS: AMLODIPINE BESYLATE 10 MG TAB PO SCH (09:00)
--- NOTE | 2018-06-23 10:43 | Diagnostic Imaging Report ---
EXAM: CT Chest without contrast INDICATION: Abnormal chest radiograph, pneumonia versus lung nodule. COMPARISON: Report from CT chest with contrast 04/25/2014 and 07/14/2018, although the images are not available for review. CT abdomen/pelvis without contrast 06/21/2018. TECHNIQUE: Chest was scanned utilizing a multidetector helical scanner from the lung apex through the level of the adrenal glands without administration of IV contrast. Coronal and sagittal reformations were obtained. Routine protocol was performed. IV CONTRAST: 100 mL of Isovue 370. RADIATION DOSE: Total DLP: 481.1 mGy*cm Dose modulation, iterative reconstruction, and/or weight based adjustment of the mA/kV was utilized to reduce the radiation dose to as low as reasonably achievable. COMPLICATIONS: None FINDINGS: LINES/ TUBES: Left-sided pacemaker with leads terminating in the right atrium and right ventricle. LUNGS AND AIRWAYS/PLEURA The central airways are patent. There is mild mosaic attenuation the lungs. There are scattered groundglass opacities, some of which are nodular in configuration, for example in the right upper lobe on series 3, images 16, 22, and 56. There is consolidative opacity with air bronchograms within the lingula. There is a cluster of solid nodules within the left lower lobe at the base, measuring up to 7 mm, on image 87. There is a small left pleural effusion. No evidence of pneumothorax. HEART AND MEDIASTINUM: There is a calcification the left thyroid gland. Mildly prominent right peritracheal lymph node measuring up to 1.1 cm short axis, likely reactive. Prominent bilateral hilar lymph nodes. There are scattered aortic atherosclerotic calcifications. There are coronary atherosclerotic calcifications. No cardiomegaly or pericardial effusion. UPPER ABDOMEN: Limited non-contrast views of the upper abdomen. Surgical clips project over the bilateral suprarenal location. The spleen is absent. Several nodular opacities which abut the posterior aspect of the right hepatic lobe, largest measuring up to 3.5 cm, some of which contain coarse calcifications. BONES: No acute osseous abnormality. No suspicious lytic or blastic lesions. IMPRESSION: Right upper lobe groundglass opacities with consolidative opacity within the lingula and cluster of solid nodules in the left lower lobe, likely representing infectious process. Suggest follow-up chest CT in 3 months to assess for resolution. Status post splenectomy. Multiple soft tissue nodules in the right upper quadrant of the abdomen, some of which contain coarse calcifications are indeterminate on this exam. However report from CT Chest on 07/14/2008 also mentions nodules at this location (although images are not available for review), and therefore likely of benign etiology. Findings could represent splenosis if there is a history of splenic trauma or intraoperative rupture. Consider dedicated contrast enhanced CT or MRI if clinically indicated. Signed by: Dr. Madai Jimenez MD on 06/23/2018 10:38 AM
--- NOTE | 2018-06-23 18:52 | NUR ---
Report given to oncoming shift and walking rounds done.
[2018-06-24] VITALS: BP 147/63
--- NOTE | 2018-06-24 01:51 | Progress Note ---
DATE: 06/23/2018 Cardiology Progress Note SUBJECTIVE: No major events overnight. No more bleeding. OBJECTIVE: VITAL SIGNS: Temperature afebrile, heart rate 65, blood pressure 148/63, saturating 97% on room air. GENERAL: Elderly white female, in no acute distress. CARDIOVASCULAR: Regular rate and rhythm. No murmurs, rubs, or gallops. LUNGS: Clear to auscultation bilaterally. ABDOMEN: Soft, nontender, nondistended. NEURO AND PSYCH: Alert and oriented to person, place, and time. Normal affect. INPATIENT MEDICATIONS: Reviewed. LABORATORY DATA: Reviewed. IMAGING DATA: Reviewed. TELEMETRY DATA: Reviewed, shows normal sinus rhythm. ASSESSMENT AND PLAN: 1. Acute symptomatic anemia. 2. Atrial fibrillation, was on anticoagulation prior to admission. 3. Status post permanent pacemaker placement. 4. Hypertension. 5. Hyperlipidemia. 6. Chronic kidney disease. 7. Diabetes. RECOMMENDATIONS: Doing well from cardiovascular standpoint. Continue cardiovascular medications except her anticoagulation. Once GI workup is completed, the patient will follow up as an outpatient to discuss Watchman device placement. Thank you for this consult. We will continue to follow. MD JAVID Jameson/FLORECITA /[id number]
[2018-06-24 04:00] VITALS: BP 131/60
[2018-06-24 08:05] VITALS: BP 156/68
[2018-06-24] MEDS: INSULIN LISPRO 100 UNIT/1 ML 3ML VIAL SQ SCH ×4 (08:10→21:24)
[2018-06-24] MEDS ORDERED: CYANOCOBALAMIN INJ 1,000 MCG/ML VIAL IM SCH (09:00)
[2018-06-24] MEDS: CARVEDILOL 12.5 MG TAB PO SCH ×2 (09:04→18:26)
[2018-06-24] MEDS: AMLODIPINE BESYLATE 10 MG TAB PO SCH (09:04)
[2018-06-24] MEDS: IRON SUCROSE 100 MG in SODIUM CHLORIDE 0.9% 100 ML 100 ML IV SCH (09:04)
[2018-06-24 09:06] VITALS: BP 156/68
[2018-06-24 12:05] VITALS: BP 135/59
--- NOTE | 2018-06-24 14:18 | Progress Note ---
DATE: Cardiology Progress Note SUBJECTIVE: The patient is feeling better. Denies any chest pain or shortness of breath. OBJECTIVE: VITAL SIGNS: Temperature 97.9, heart rate 64, respirations are 18, and blood pressure is /68, and oxygen saturation 97% on room air. GENERAL: She is well appearing, well built, no apparent distress. CARDIOVASCULAR: Regular rate and rhythm. LUNGS: Clear to auscultation. ABDOMEN: Soft and nontender. LABORATORY DATA: All laboratory data reviewed. Hemoglobin has not been checked in two days. Telemetry monitoring revealed normal sinus rhythm. IMPRESSION: 1. Symptomatic anemia. 2. Atrial fibrillation. 3. Permanent pacemaker placement. 4. Hypertension. 5. Hyperlipidemia. 6. Chronic kidney disease. 7. Diabetes mellitus. RECOMMENDATIONS: She is doing well from a cardiovascular standpoint. We will continue to hold anticoagulation given severe symptomatic anemia on presentation. Once the GI workup is completed, the patient can be discharged from a cardiovascular standpoint with outpatient followup. She will likely need a Watchman device in the future. DO ROSEANNE Webb/MODL /[id number]
[2018-06-24 20:00] VITALS: BP 161/72
[2018-06-25] VITALS: BP 139/64
[2018-06-25 04:00] VITALS: BP 155/72
[2018-06-25 05:17] LABS: BASOPHILS # (AUTO) 0.1 (0.0-0.1); BASOPHILS % 0.7 % (0.0-1.0); EOSINOPHILS # (AUTO) 0.4 (0.0-0.4); EOSINOPHILS % 4.1 % (0.0-6.0); HEMATOCRIT 30.1 % (34.2-44.1); HEMOGLOBIN 9.4 g/dL (12.0-16.0); LYMPHOCYTES # (AUTO) 3.5 (1.0-3.2); LYMPHOCYTES % 34.3 % (18.0-39.1); MEAN CORPUSCULAR HEMOGLOBIN 25.8 pg (28-32); MEAN CORPUSCULAR HGB CONC 31.2 g/dL (31-35); MEAN CORPUSCULAR VOLUME 82.7 fL (81-99); MONOCYTES # (AUTO) 0.9 (0.2-0.8); MONOCYTES % 8.7 % (4.4-11.3); NEUTROPHILS # (AUTO) 5.3 (2.1-6.9); NEUTROPHILS % 51.9 % (38.7-80.0); PLATELET COUNT 259 x10e3/uL (140-360); RED BLOOD COUNT 3.64 x10e6/uL (3.6-5.1); RED CELL DISTRIBUTION WIDTH 17.6 % (11.7-14.4)
[2018-06-25 05:44] LABS: ANION GAP 10.5 mmol/L (8-16); CALCIUM 8.7 mg/dL (8.4-10.2); CREATININE, SERUM 1.61 mg/dL (0.57-1.11); POTASSIUM 4.5 mmol/L (3.5-5.1)
[2018-06-25] MEDS ORDERED: LEVOTHYROXINE SODIUM 112 MCG TAB PO SCH (06:30)
[2018-06-25 07:47] VITALS: BP 172/79
[2018-06-25] MEDS: INSULIN LISPRO 100 UNIT/1 ML 3ML VIAL SQ SCH (08:15)
[2018-06-25] MEDS: IRON SUCROSE 100 MG in SODIUM CHLORIDE 0.9% 100 ML 100 ML IV SCH (08:43)
[2018-06-25] MEDS: CARVEDILOL 12.5 MG TAB PO SCH (08:43)
[2018-06-25] MEDS: AMLODIPINE BESYLATE 10 MG TAB PO SCH (08:44)
[2018-06-25 11:41] VITALS: BP 152/68
--- NOTE | 2018-06-25 13:17 | NUR ---
Spoke to Dr. Johnson who stated pt will need repeat CT scan in 3 months but she is cleared from pulmonary standpoint for discharge. CM called and spoke to Dr. Mcneil and informed him. He stated that pt will discharge home today. CM updated pt's nurse MERCEDES Gomez who will reach out to MD for dc order and instructions.
--- NOTE | 2018-06-25 13:55 | Progress Note ---
DATE: 06/25/2018 Cardiology Progress Note SUBJECTIVE: The patient denies chest pain or shortness of breath. OBJECTIVE: VITAL SIGNS: Temperature 98.2 degrees, pulse 70, respiratory rate 18, blood pressure 172/79 and oxygen saturation 98% on room air. GENERAL: Awake, alert, in no acute distress. LUNGS: Clear to auscultation bilaterally. No wheezes or crackles. CARDIOVASCULAR: Normal rate, regular rhythm. No murmur. Normal S1, S2. ABDOMEN: Soft, nontender. EXTREMITIES: No edema. CARDIAC MEDICATIONS: Amlodipine 10 mg p.o. daily, carvedilol 12.5 mg p.o. b.i.d., and levothyroxine 110 mcg p.o. daily. LABORATORY DATA: WBC 10.1, hemoglobin 9.4, hematocrit 30.1, and platelets 259. Sodium 131, potassium 4.5, chloride 109, CO2 16, BUN 42, and creatinine 1.61. TELEMETRY: A-paced. IMPRESSION: 1. Symptomatic anemia. 2. Atrial fibrillation. 3. Permanent pacemaker placed. 4. Hypertension. 5. Hyperlipidemia. 6. Chronic kidney disease. 7. Diabetes mellitus. 8. CT chest with ground-glass opacities and consolidative opacities. RECOMMENDATIONS: The patient is stable from a cardiac standpoint. Continue current cardiac medications. Hold anticoagulation due to symptomatic anemia on presentation. The patient was instructed to follow up as an outpatient with Dr. Jean-Baptiste to discuss possible watchman after GI evaluation is complete. Continue current cardiac medications. Consider increasing carvedilol if the patient remains hypertensive. Thank you for this consult. We will continue to follow. Laurie De La Garza MD ABS/MODL /[id number]
[2018-06-25 15:42] VITALS: BP 148/63
--- NOTE | 2018-06-25 18:52 | Consultation ---
DATE OF CONSULTATION: Pulmonary Consultation REASON FOR THE CONSULT: Abnormal CT chest. HISTORY OF PRESENT ILLNESS: Ms. Lindquist is a 77-year-old female. She was initially admitted by Dr. Mcneil with the complaint of shortness of breath. The patient was found to be anemic and workup for anemia was done. She underwent EGD and small ulcers were found. She had a CT of the chest done because of coughing and that showed lingular consolidative opacity and I have reviewed the images showing lingular atelectasis. 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 She is denying any complaints of chest pain, nausea, vomiting, or diarrhea. She has a small area of ground glass in the right upper lobe as well on the CAT scan. REVIEW OF SYSTEMS: GENERAL: Denies any fever or chills. HEAD: Denies any head trauma. ENT: Denies any earache. CVS: Denies any chest pain. RESPIRATORY: Denies any shortness of breath. The rest of the review of systems are negative, except as in HPI. PAST MEDICAL HISTORY: 1. History of vocal cord cancer and Wojciech implant. 2. Hypertension and diabetes. PAST SURGICAL HISTORY: Cholecystectomy and hysterectomy. FAMILY AND SOCIAL HISTORY: She has never smoked. Does not drink. She also has a history of AFib, is on long-term anticoagulation. PHYSICAL EXAMINATION: VITAL SIGNS: Temperature 97.3, pulse of 64, blood pressure 155/72, respiratory rate of 18, and O2 saturation 97%. HEENT: Head, atraumatic and normocephalic. NECK: Supple. CHEST: Few crackles on the bases, but otherwise clear. HEART: S1 and S2 audible. No murmurs, gallops, or rubs. ABDOMEN: Soft, nontender. EXTREMITIES: No pedal edema. NEUROLOGIC: Awake and alert. LABORATORY DATA: White count of 10,000, hemoglobin 9.4, and platelets 259. Chemistry; sodium 131, potassium 4.5, chloride 109, BUN 42, creatinine 1.6. CT of the chest, I have reviewed the images. There is an area of lingular atelectasis versus consolidation and there is a small area of right upper lobe ground-glass area. Otherwise, there is a small effusion on the left lower lobe. ASSESSMENT/PLAN: Ms. Lindquist is a 77-year-old female. She was found to be severely anemic and short of breath, but she is much better. She has a history of vocal cord surgery and Wojciech implant. Currently, has an abnormal CAT scan. The finding on the CAT scan looks like a lingular atelectasis, which can be chronic and could be the reason of her off and on coughing. Her wheezing can be due to the vocal cord dysfunction, which she probably has developed since she has a Wojciech implant as the patient reports off and on hoarseness. RECOMMENDATIONS: I had a detailed discussion with the patient about doing a bronchoscopy and maybe looking at the endobronchial airways. However, she is very concerned about her Wojciech implant and vocal cord and concerned that bronchoscopy may cause some problem in talking. It is a very low risk of any vocal cord problem with bronchoscopy, however, the risk cannot be completely eliminated. I explained to her in detail. At this point, with detailed discussion, we have decided that we will do a repeat CAT scan in 3 months and if the findings are still there, then we will consider doing the bronchoscopy. She is in agreement. I have also discussed this plan with Dr. Mcneil as well. Thank you very much for this consult. MD LISBETH Garrido/FLORECITA /[id number]
== END 2018-06-25 18:00 | disposition home or self-care (01) ==
LOC: ER 21:47 → IMCU 06-20 01:07
PROVIDERS: ADMIT Internal Medicine; ATTEND Internal Medicine
DX: K25.4 Chronic or unspecified gastric ulcer with hemorrhage (principal); D62 Acute posthemorrhagic anemia; R42 Dizziness and giddiness; R55 Syncope and collapse; R53.1 Weakness; Z79.01 Long term (current) use of anticoagulants; Z95.0 Presence of cardiac pacemaker; E78.5 Hyperlipidemia, unspecified; E87.1 Hypo-osmolality and hyponatremia; E11.22 Type 2 diabetes mellitus with diabetic chronic kidney disease; I12.9 Hypertensive chronic kidney disease with stage 1 through stage 4 chronic kidney disease, or unspecified chronic kidney disease; N18.9 Chronic kidney disease, unspecified; Z88.0 Allergy status to penicillin; Z88.8 Allergy status to other drugs, medicaments and biological substances; J98.11 Atelectasis; Z96.89 Presence of other specified functional implants; Z85.21 Personal history of malignant neoplasm of larynx; Z90.49 Acquired absence of other specified parts of digestive tract; Z86.010 Personal history of colon polyps; K20.9 Esophagitis, unspecified; K29.70 Gastritis, unspecified, without bleeding; K25.9 Gastric ulcer, unspecified as acute or chronic, without hemorrhage or perforation; D13.1 Benign neoplasm of stomach; K63.5 Polyp of colon; K64.8 Other hemorrhoids; I48.0 Paroxysmal atrial fibrillation; D50.9 Iron deficiency anemia, unspecified; Z79.4 Long term (current) use of insulin
CPT/HCPCS: 36415 ×7; 36430; 43239; 45384; 45385; 71046; 71250; 74176; 80048 ×3; 80053; 82270; 82607; 82728; 82746; 82948 ×6; 83540; 84466; 85025 ×4; 85045; 86850; 86900; 86920; 88305; 88312; 93005; 96372 ×3; 99284; G0378 ×6; J0360 ×2; J1610; J1756 ×2; J1980; J2001; J2250; J2704; J3420; J7050; P9016

== ENCOUNTER → 2018-07-19 | Outpatient (CLI) | payer MEDICARE, BC ==
[~2018-07-19] MED LIST changes: +ATORVASTATIN CA20 MG PO; +MONTELUKAST SOD10 MG PO; +NOVOLOG100 UNIT/1 SQ; +TRIBENZOR 40-11 EAC1 PO; +eliquis PO; +tresiba SQ
--- NOTE | 2018-07-19 09:45 | Diagnostic Imaging Report ---
Examination: Air contrast barium enema. Clinical indication: Tortuous large bowel, difficult colonoscopy. Comparison examination: CT scan of the abdomen and pelvis 06/21/2018 Technique: After inflation of a retention balloon in the rectum, barium and air were instilled in a retrograde fashion through the colon. Overhead and fluoroscopic spot images were obtained. Fluoroscopy time: 3 minutes Air kerma: 204.6 mGy Findings: Mussel Opener radiograph shows a nonobstructive bowel gas pattern. Multiple upper abdominal surgical clips and left renal endovascular embolization coils are noted. No mass effect or organomegaly. Regional skeletal structures are intact with scattered degenerative changes of the lumbar spine and hips. Examination is slightly limited by adherent stool throughout the colon. There is a very short segment of concentric narrowing of the proximal ascending colon, which persists on all obtained radiographic views. Otherwise, no annular constricting lesion, large polyp, or stricture is appreciated. Marked redundancy of the colon is noted. Impression: Limited examination as above. Short segment annular constricting focus of the proximal ascending colon persists on all obtained images. While this may be attributable to peristalsis/spasm, a constricting mass lesion is an additional consideration. No discrete lesion was identified in this area on comparison CT 06/21/2018; however, further evaluation is suggested. If colonic redundancy precludes endoscopic access to this segment, consideration should be given to CT colonography. Signed by: Dr. Sundar Theodore M.D. on 07/19/2018 9:42 AM
== END ==
LOC: DX 07:19
PROVIDERS: ATTEND Internal Medicine Gastroenterology
DX: Q43.8 Other specified congenital malformations of intestine (principal)
CPT/HCPCS: 74280

== ENCOUNTER → 2018-07-23 | Outpatient (CLI) | payer MEDICARE, BC ==
--- NOTE | 2018-07-23 16:39 | Diagnostic Imaging Report ---
FLUOROSCOPIC SMALL BOWEL SERIES OVEN LOADER(S): Madai Jimenez MD Indication: Anemia. Comparison: Barium enema 07/19/[address] abdomen/pelvis 06/21/2018. Radiation Dose: Total dose: 97.6 mGy Total fluoroscopy time: 29.2 minutes Procedure: Small bowel follow through exam was performed using oral barium. Preliminary image was obtained before administration of contrast and serial overhead images were obtained after administration of oral barium. Fluoroscopy was performed and spot images were obtained. DISCUSSION: DRAPERY AND UPHOLSTERY ESTIMATOR: The bowel gas pattern is non-obstructive. No acute bony abnormality. Surgical clips project over the upper abdomen bilaterally. Partially seen pacemaker leads. STOMACH: Unremarkable mucosal pattern. SMALL BOWEL: Bulb and sweep are normal. Duodenal-jejunal junction is in the normal expected position. Small bowel loops are normal in caliber and distribution. There is no evidence of fistula, mucosal changes, stricture or dilation. The transit time was within normal limits. Spot image of the terminal ileum was unremarkable. COLON: There is short segment narrowing of the proximal ascending colon, which was also present on the barium enema from 07/19/2018. Narrowing persists on different views and does not resolve with peristalsis. Filling defects within the proximal colon likely reflect stool contents. IMPRESSION: Short segment narrowing of the proximal ascending colon, which was also present on the barium enema from 07/19/2018. Findings could represent a stricture, although underlying mass is not excluded. Suggest correlation with colonoscopy findings. If endoscopic access to this location is not possible, CT colonoscopy may be considered. Signed by: Dr. Madai Jimenez MD on 07/23/2018 4:36 PM
== END ==
LOC: DX 07:27
PROVIDERS: ATTEND Internal Medicine Gastroenterology
DX: D64.89 Other specified anemias (principal)
CPT/HCPCS: 74250

== ENCOUNTER → 2019-02-25 | Day surgery (SDC) | payer MEDICARE, BC ==
[2019-02-24 15:28] LABS: BASOPHILS # (AUTO) 0.1 (0.0-0.1); BASOPHILS % 0.6 % (0.0-1.0); EOSINOPHILS # (AUTO) 0.4 (0.0-0.4); EOSINOPHILS % 2.9 % (0.0-6.0); HEMATOCRIT 30.4 % (34.2-44.1); HEMOGLOBIN 10.2 g/dL (12.0-16.0); LYMPHOCYTES # (AUTO) 5.7 (1.0-3.2); LYMPHOCYTES % 45.1 % (18.0-39.1); MEAN CORPUSCULAR HEMOGLOBIN 32.4 pg (28-32); MEAN CORPUSCULAR HGB CONC 33.6 g/dL (31-35); MEAN CORPUSCULAR VOLUME 96.5 fL (81-99); MONOCYTES # (AUTO) 1.1 (0.2-0.8); MONOCYTES % 8.9 % (4.4-11.3); NEUTROPHILS # (AUTO) 5.3 (2.1-6.9); PLATELET COUNT 431 x10e3/uL (140-360); RED BLOOD COUNT 3.15 x10e6/uL (3.6-5.1)
[2019-02-24 15:48] LABS: ALBUMIN 2.8 g/dL (3.5-5.0); ALBUMIN/GLOBULIN RATIO 0.7 (0.8-2.0); ANION GAP 12.4 mmol/L (8-16); CALCIUM 10.1 mg/dL (8.4-10.2); CREATININE, SERUM 1.95 mg/dL (0.57-1.11); POTASSIUM 3.4 mmol/L (3.5-5.1)
[~2019-02-25] VITALS: Ht 157.5 cm; Wt 77.1 kg
[~2019-02-25] MED LIST changes: +BENZOCAINE 20% SPR 60 ML CAN ONE; +ELIQUIS5 M1 PO; +FERROUS SULFAT325 MG PO; +KETAMINE HCL INJ 50 MG/ML 10 ML VIAL ONE; +MIDAZOLAM HCL 2 MG/2 ML VIAL ONE; +PROPOFOL IV EMULSION 10 MG/ML 20 ML VIAL ONE; +SODIUM CHLORIDE 0.9% 1000ML 1,000 ML ONE
--- OUTSIDE RECORDS SUMMARY | 2019-02-25 10:23 | XMS REPORT | Summary of Care ---
Author Author [facility] - Health Organization [facility] - Health Address Unknown Phone Unavailable Care Team Providers Care Wire Weaver Name Role Phone Fabien Man PCP Reason for Visit * Auth/Cert Referred By Contact Referred To Contact Status Reason Specialty Diagnoses / Procedures [address] [address] Surgery Diagnoses WATCHMAN P rocedures IA DOPPLER ECHO HEART,COMPLETE IA DOPPLER COLOR FLOW VELOCITY MAP IA ECHO TRANSESOPHAG R-T 2D W/PRB IMG ACQUISJ I&R Encounter Details Care Team Description Date Type [place] [id number] [id number] Anesthesia, [facility] Cardiac Cath 1, [facility] Cardiac Proc Room Anesthesia, [facility] Ep Lab Paroxysmal atrial fibrillation (Primary Dx); Presence of Watchman left atrial appendage closure device 12/26/2018 Hospital [facility] Encounter - Heart Station, [facility] [address] [place] [address] Allergies Comments Active Allergy Reactions Severity Noted Date Meperidine Hcl Nausea and/or 12/24/2018 Vomiting Cyclobenzaprine Hcl Unknown - See Medium 12/24/2018 comments Penicillins Hives Medium 12/24/2018 documented as of this encounter (statuses as of 12/27/2018) Medications End Date Status Medication Sig Dispensed Refills Start Date Suspended DULoxetine 60 mg capsule Take 60 mg by 0 mouth. Suspended atorvastatin 40 mg tablet Take 40 mg by 0 mouth at 6 bedtime. Suspended Vvnobfgadd-Ugwzzabnee-ZGG 1 tablet 0 Z 40-10-25 mg per tablet daily. 9 Suspended latanoprost 0.005 % 0 ophthalmic drops 9 Suspended NOVOLOG U-100 INSULIN 24 Units 1 ASPART 100 unit/mL daily. 9 solution Suspended TRESIBA FLEXTOUCH U-200 62 Units 1 200 unit/mL (3 mL) InPn daily. 9 Suspended levothyroxine 175 mcg Cap Take 1 tablet 0 by mouth daily. documented as of this encounter (statuses as of 12/27/2018) Active Problems Problem Noted Date Presence of Watchman left atrial appendage closure device 12/26/2018 Atrial fibrillation 12/26/2018 documented as of this encounter (statuses as of 12/27/2018) Social History Date Tobacco Use Types Packs/Day Years Used Never Assessed Sex Assigned at Date Recorded Not on file Industry Job Start Date Occupation Not on file Not on file Not on file Travel End Travel History Travel Start No recent travel history available. documented as of this encounter Last Filed Vital Signs Reading Time Taken Comments Vital Sign 157/80 12/26/2018 10:49 AM CDT Blood Pressure - - Pulse - - Temperature 17 12/26/2018 10:49 AM CDT Respiratory Rate 99% 12/26/2018 10:49 AM CDT Oxygen Saturation - - Inhaled Oxygen Concentration 75.3 kg (166 lb) 12/26/2018 10:49 AM CDT Weight 157.5 cm (5' 2") 12/26/2018 10:49 AM CDT Height 30.36 12/26/2018 10:49 AM CDT Body Mass Index documented in this encounter Plan of Treatment Date/Time Name Type Priority Associated Diagnoses 12/26/2018 12:12 PM CDT Prepare Packed RBC (in Blood Bank Routine Paroxysmal atrial units), 2 Units fibrillation Order Schedule Name Type Priority Associated Diagnoses ONCE for 1 Occurrences starting 12/27/2018 until 12/27/2018 BASIC METABOLIC PANEL LAB Routine Paroxysmal atrial (NA, K, CL, CO2, GLUCOSE, fibrillation BUN, CREATININE, CA) Presence of Watchman left atrial appendage closure device Health Maintenance Due Date Last Done Comments DTaP,Tdap,and Td Vaccines 1961 (1 - Tdap) Zoster Recombinant 1992 Vaccine (SHINGRIX) (1 of 2) Medicare Wellness Visit 10/29/2007 Osteoporosis Screening 10/29/2007 PNEUMOCOCCAL VACCINES 65+ 10/29/2007 (1 of 2 - PCV13) INFLUENZA VACCINE (#1) 2018 documented as of this encounter Procedures Comments Procedure Name Priority Date/Time Associated Diagnosis ECHO ROUTINE W/DOPPLER Routine 12/26/2018 Paroxysmal atrial COLOR 5:58 PM CDT fibrillation Presence of Watchman left atrial appendage closure device PREPARE PACKED RBC Routine 12/26/2018 Paroxysmal atrial 12:12 PM CDT fibrillation ABORH CONFIRMATION Routine 12/26/2018 11:35 AM CDT PROTHROMBIN TIME / INR Routine 12/26/2018 Paroxysmal atrial 11:34 AM CDT fibrillation CBC WITH DIFFERENTIAL Routine 12/26/2018 Paroxysmal atrial 11:13 AM CDT fibrillation CBC WITH DIFF Routine 12/26/2018 Paroxysmal atrial 11:13 AM CDT fibrillation BASIC METABOLIC PANEL Routine 12/26/2018 Paroxysmal atrial (NA, K, CL, CO2, GLUCOSE, 11:13 AM CDT fibrillation BUN, CREATININE, CA) TYPE AND SCREEN ALLIE 12/26/2018 Paroxysmal atrial 11:05 AM CDT fibrillation NOTICE OF BILLING Routine 12/26/2018 PRACTICES FOR MEDICARE 10:21 AM CDT PATIENTS ASSIGNMENT OF BENEFITS Routine 12/26/2018 10:20 AM CDT NOTICE OF PRIVACY Routine 12/26/2018 PRACTICES 10:16 AM CDT CONSENT/REFUSAL FOR Routine 12/26/2018 DIAGNOSIS AND TREATMENT 10:15 AM CDT ASSIGNMENT OF BENEFITS Routine 12/26/2018 10:14 AM CDT CATH PROCEDURE LOG Routine 12/26/2018 documented in this encounter Results * ABORH CONFIRMATION (12/26/2018 11:35 AM CDT) ABO & RH O Positive LAB Comment: Performed at [facility] Laboratory Services - [facility] Blood Bank [address] [place] [address] Toll Free: [phone] CLIA No. [id number] Specimen Performing Organization Address City/State/Zipcode Phone Number BLD LAB * PROTHROMBIN TIME / INR (12/26/2018 11:34 AM CDT) PROTIME PATIENT 10.9 10.1 - 12.6 Seconds [facility] SERVICES-[facility] INR 1.0Comment: Normal INR <1.1; [facility] Warfarin Therapeutic range 2.0 [facility] to 3.0 or 2.5 to 3.5, [facility] depending upon the indications. Specimen Blood Performing Organization Address City/State/Zipcode Phone Number [facility] CLIA: [id number], [address] [place] [address] [facility] * CBC WITH DIFFERENTIAL (12/26/2018 11:13 AM CDT) WBC 13.07 (H) 4.30 - 11.10 [facility] 10*3/L [facility] RBC 3.51 (L) 3.93 - 5.25 10*6/L [facility] HGB 11.1 (L) 11.6 - 15.0 g/dL [facility] HCT 33.5 (L) 35.7 - 45.2 % [facility] MCV 95.4 80.6 - 95.5 fL [facility] MCH 31.6 25.9 - 32.8 pg [facility] MCHC 33.1 31.6 - 35.1 g/dL [facility] RDW-SD 46.0 39.0 - 49.9 fL [facility] RDW-CV 13.2 12.0 - 15.5 % [facility] PLT 367 (H) 166 - 358 10*3/L [facility] MPV 11.5 9.5 - 12.9 fL [facility] NRBC/100 WBC 0.0 0.0 - 10.0 /100 WBCs [facility] NRBC x10^3 <0.01 10*3/L [facility] GRAN MAT (NEUT) 50.1 % [facility] % [facility] IMM GRAN % 0.30 % [facility] LYMPH % 37.1 % [facility] MONO % 8.0 % [facility] EOS % 3.7 % [facility] BASO % 0.8 % [facility] GRAN MAT 6.55 1.88 - 7.09 10*3/uL [facility] x10^3(ANC) [facility] IMM GRAN x10^3 0.04 0.00 - 0.06 10*3/uL [facility] LYMPH x10^3 4.85 (H) 1.32 - 3.29 10*3/uL [facility] MONO x10^3 1.04 (H) 0.33 - 0.92 10*3/uL [facility] EOS x10^3 0.49 (H) 0.03 - 0.39 10*3/uL [facility] BASO x10^3 0.10 (H) 0.01 - 0.07 10*3/uL [facility] Specimen Blood Performing Organization Address City/State/Zipcode Phone Number [facility] CLIA: [id number], [address] [place], [place] [address] [facility] * BASIC METABOLIC PANEL (NA, K, CL, CO2, GLUCOSE, BUN, CREATININE, CA) (12/26/2018 11:13 AM CDT) NA 139 135 - 145 mmol/L [facility] K 4.1 3.5 - 5.0 mmol/L [facility] CL 110 (H) 98 - 108 mmol/L [facility] CO2 TOTAL 21 (L) 23 - 31 mmol/L [facility] AGAP 8 2 - 16 [facility] BUN 38 (H) 7 - 23 mg/dL [facility] GLUCOSE 119 (H) 70 - 110 mg/dL [facility] CREATININE 2.06 (H) 0.50 - 1.04 mg/dL [facility] CALCIUM 10.1 8.6 - 10.6 mg/dL [facility] eGFR 23.4 mL/min/1.73m2 [facility] Calculation [facility] (Non-[facility] Mong[place]ian) eGFR 28.4 mL/min/1.73m2 [facility] Calculation SERVICES-[facility] ([facility]) Specimen Blood Narrative Performed At Association of Glomerular Filtration Rate (GFR) and Staging of Kidney Disease* [facility] + + + + SERVICES- [place] | GFR (mL/min/1.73 m2)| With Kidney Damage|Without Kidney Damage CAMPUS + + + + |>90|Stage one| Normal + + + + |60-89|Stage two| Decreased GFR + + + + |30-59|Stage three| Stage three + + + + |15-29|Stage four | Stage four + + + + |<15 (or dialysis)|Stage five | Stage five + + + + *Each stage assumes the associated GFR level has been in effect for at least three months.Stages 1 to 5, with or without kidney disease, indicate chronic kidney disease. Notes: Determination of stages one and two (with eGFR >59mL/min/1.73 m2) requires estimation of kidney damage for at least three months as defined by structural or functional abnormalities of the kidney, manifested by either: Pathological abnormalities or Markers of kidney damage (including abnormalities in the composition of the blood or urine or abnormalities in imaging tests). Performing Organization Address City/State/Zipcode Phone Number [facility] CLIA: [id number], [address] [place] [address] SERVICES-[facility] * Type and Screen - ONCE ALLIE (12/26/2018 11:05 AM CDT) ABO & RH O Positive LAB Comment: Performed at [facility] Laboratory Services - [facility] Blood Bank [address] [place] [address] Toll Free: [phone] CLIA No. [id number] IAT Negative LAB Comment: Performed at [facility] Laboratory Services - [facility] Blood [facility] [address] [place] [address] Toll Free: [phone] CLIA No. [id number] Specimen VENOUS Performing Organization Address City/State/Zipcode Phone Number [facility] documented in this encounter Visit Diagnoses Diagnosis Paroxysmal atrial fibrillation - Primary Atrial fibrillation Presence of Watchman left atrial appendage closure device documented in this encounter Administered Medications Action Date Dose Rate Site Medication Order MAR Action 12/26/2018 3:30 PM CDT 1,000 mL 75 mL/hr NaCl 0.9% (NS) IV infusion 1,000 mL New Bag at 75 mL/hr, IV Infusion, CONTINUOUS, Starting Mirna 12/26/18 at 1700, Until Discontinued, Routine documented in this encounter Insurance Type Payer Benefit Subscriber ID Effective Phone Address Plan / Dates Group Medicare MEDICARE MEDICARE xxxxxxxxxxx 2007-P [phone] [address] resent [id number] [place] [address] Medicare Supplement [facility] [id number] 2014-P [phone] [id number] [place] [address] documented as of this encounter
--- OUTSIDE RECORDS SUMMARY | 2019-02-25 10:23 | XMS REPORT ---
Author Author [facility] Address Unknown Phone Unavailable Care Team Providers Care Mash Filter Cloth Changer Name Role Phone MAYA MARTINEZ Unavailable Unavailable JOSE BHAGAT Unavailable Unavailable Problems This patient has no known problems. Allergies, Adverse Reactions, Alerts This patient has no known allergies or adverse reactions. Medications This patient has no known medications. Results Test Description Test Time Test Comments Text Results Atomic Results Result Comments SCR MAMM BILATERAL SURY CAD DIGITAL 2018-12-23 12:23:05 - SCR MAMM BILATERAL SURY CAD DIGITALBILATERAL DIGITAL SCREENING MAMMOGRAM 3D/2D WITH CAD: 12/20/2018CLINICAL: Asymptomatic. Digital breast tomosynthesis was performed in addition to routine CC and MLO views. Current mammographic images were evaluated by either a [employer] M-Vu or a [employer] ImageChecker CAD (computer aided detection system). Comparison is made to exams dated 06/18/2017 mammogram, 2016 mammogram, and 12/08/2013 mammogram - [facility]. There are scattered fibroglandular tissues in both breasts. There is a pacemaker control module projecting over the left axilla. There are benign calcifications in both breasts. There also is a biopsy clip in the left breast. No suspicious mass, architectural distortion, malignant type calcification, or lymph node abnormality detected. IMPRESSION: BENIGNThere is no mammographic evidence of malignancy. Resume annual screening mammography in one year. Vincent barrett/sharon:12/23/2018 12:23:05 Graduate Intern: Justina FAROOQ, [facility] sent: BIRADS 1-2 Normal Mammogram BI-RADS: 2 Benign SMALL BOWEL SERIES 2018-07-23 13:54:[address] [address] Patient Name: MIRA YANG MR #: [id number] : 1940 [facility] 77[id number] Req #: [id number] Adm Physician: Ordered by: MAYA MARTINEZ MD Report #: [id number] Location: DX Room/Bed: Procedure: [id number] DX/SMALL BOWEL SERIES Exam Date: 07/23/18 Exam Time: 729 REPORT STATUS: Signed FLUOROSCOPIC SMALL BOWEL SERIES LIGHT RAIL OPERATOR(S): Milton Macias MD Indication: Anemia. Comparison: Barium enema 07/19/[address] abdomen/pelvis 06/21/2018. Radiation Dose: Total dose: 97.6 mGy Total fluoroscopy time: 29.2 minutes Procedure: Small bowel follow through exam was performed using oral barium. Preliminary image was obtained before administration of contrast and serial overhead images were obtained after administration of oral barium. Fluoroscopy was performed and spot images were obtained. DISCUSSION: SQUARE SHEAR OPERATOR: The bowel gas pattern is non-obstructive. No acute bony abnormality. Surgical clips project over the upper abdomen bilaterally. Partially seen pacemaker leads. STOMACH: Unremarkable mucosal pattern. SMALL BOWEL: Bulb and sweep are normal. Duodenal- jejunal junction is in the normal expected position. Small bowel loops are normal in caliber and distribution. There is no evidence of fistula, mucosal changes, stricture or dilation. The transit time was within normal limits. Spot image of the terminal ileum was unremarkable. COLON: There is short segment narrowing of the proximal ascending colon, which was also present on the barium enema from 07/19/2018. Narrowing persists on different views and does not resolve with peristalsis. Filling defects within the proximal colon likely reflect stool contents. IMPRESSION: Short segment narrowing of the proximal ascending colon, which was also present on the barium enema from 07/19/2018. Findings could represent a stricture, although underlying mass is not excluded. Suggest correlation with colonoscopy findings. If endoscopic access to this location is not possible, CT colonoscopy may be considered. Signed by: Dr. Milton Macias MD on 07/23/2018 4:36 PM Dictated By: MILTON MACIAS MD 35 Transcribed By: ROBERT on 07/23/181635 COPY TO: MAYA MARTINEZ MD BARIUM ENEMA W/AIR C 2018-07-19 09:31:00 [place] [address] Patient Name: MIRA YANG MR #: [id number] : 1940 Age/Sex: 77/F Req #: [id number] Adm Physician: Ordered by: MAYA MARTINEZ MD Report #: [id number] Location: DX Room/Bed: Procedure: [id number] DX/BARIUM ENEMA W/AIR C Exam Date: 07/19/18 Exam Time: 0800 REPORT STATUS: Signed Examination: Air contrast barium enema. Clinical indication: Tortuous large bowel, difficult colonoscopy. Comparison examination: CT scan of the abdomen and pelvis 06/21/2018 Technique: After inflation of a retention balloon in the rectum, barium and air were instilled in a retrograde fashion through the colon. Overhead and fluoroscopic spot images were obtained. Fluoroscopy time: 3 minutes Air kerma: 204.6 mGy Findings: Internal Investigator radiograph shows a nonobstructive bowel gas pattern. Multiple upper abdominal surgical clips and left renal endovascular embolization coils are noted. No mass effect or organomegaly. Regional skeletal structures are intact with scattered degenerative changes of the lumbar spine and hips. Examination is slightly limited by adherent stool throughout the colon. There is a very short segment of concentric narrowing of the proximal ascending colon, which persists on all obtained radiographic views. Otherwise, no annular constricting lesion, large polyp, or stricture is appreciated. Marked redundancy of the colon is noted. Impression: Limited examination as above. Short segment annular constricting focus of the proximal ascending colon persists on all obtained images. While this may be attributable to peristalsis/spasm, a constricting mass lesion is an additional consideration. No discrete lesion was identified in this area on comparison CT 06/21/2018; however, further evaluation is suggested. If colonic redundancy precludes endoscopic access to this segment, consideration should be given to CT colonography. Signed by: Dr. Virginia Wheeler M.D. on 07/19/2018 9:42 AM Dictated By: VIRGINIA WHEELER MD 1 Transcribed By: ROBERT on 07/19/18941 COPY TO: MAYA MARTINEZ MD CT CHEST WO 2018-06-23 10:20:00 [place] [address] Patient Name: MIRA YANG MR #: [id number] : 1940 Age/Sex: 77/F Req #: [id number] [facility] Physician: JOSE BHAGAT MD Ordered by: JOSE BHAGAT MD Report #: [id number] Location: [facility] Room/Bed: [place] [address] Procedure: [id number] CT/CT CHEST WO Exam Date: 06/21/18 Exam Time: 1631 REPORT STATUS: Signed EXAM: CT Chest without contrast INDICATION: Abnormal chest radiograph, pneumonia versus lung nodule. COMPARISON: Report from CT chest with contrast 04/25/2014 and 07/14/2018, although the images are not available for review. CT abdomen/pelvis without contrast 06/21/2018. TECHNIQUE: Chest was scanned utilizing a multidetector helical scanner from the lung apex through the level of the adrenal glands without administration of IV contrast. Coronal and sagittal reformations were obtained. Routine protocol was performed. IV CONTRAST: 100 mL of Isovue 370. RADIATION DOSE: Total DLP: 481.1 mGy*cm Dose modulation, iterative reconstruction, and/or weight based adjustment of the mA/kV was utilized to reduce the radiation dose to as low as reasonably achievable. COMPLICATIONS: None FINDINGS: LINES/ TUBES: Left-sided pacemaker with leads terminating in the right atrium and right ventricle. LUNGS AND AIRWAYS/PLEURA The central airways are patent. There is mild mosaic attenu ation the lungs. There are scattered groundglass opacities, some of which are nodular in configuration, for example in the right upper lobe on series 3, images 16, 22, and 56. There is consolidative opacity with air bronchograms within the lingula. There is a cluster of solid nodules within the left lower lobe at the base, measuring up to 7 mm, on image 87. There is a small left pleural effusion. No evidence of pneumothorax. HEART AND MEDIASTINUM: There is a calcification the left thyroid gland. Mildly prominent right peritracheal lymph node measuring up to 1.1 cm short axis, likely reactive. Prominent bilateral hilar lymph nodes. There are scattered aortic atherosclerotic calcifications. There are coronary atherosclerotic calcifications. No cardiomegaly or pericardial effusion. UPPER ABDOMEN: Limited non-contrast views of the upper abdomen. Surgical clips project over the bilateral suprarenal location. The spleen is absent. Several nodular opacities which abut the posterior aspect of the right hepatic lobe, largest measuring up to 3.5 cm, some of which contain coarse calcifications. BONES: No acute osseous abnormality. No suspicious lytic or blastic lesions. IMPRESSION: Right upper lobe groundglass opacities with consolidative opacity within the lingula and cluster of solid nodules in the left lower lobe, likely representing infectious process. Suggest follow-up chest CT in 3 months to assess for resolution. Status post splenectomy. Multiple soft tissue nodules in the right upper quadrant of the abdomen, some of which contain coa rse calcifications are indeterminate on this exam. However report from CT Chest on 07/14/2008 also mentions nodules at this location (although images are not available for review), and therefore likely of benign etiology. Findings could represent splenosis if there is a history of splenic trauma or intraoperative rupture. Consider dedicated contrast enhanced CT or MRI if clinically indicated. Signed by: Dr. Milton Macias MD on 06/23/2018 10:38 AM Dictated By: MILTON MACIAS MD 1038 Transcribed By: ROBERT on 06/23/18 1038 COPY TO: JOSE BHAGAT MD CHEST 2 VIEWS 2018-06-21 12:04:00 [place] [address] Patient Name: MIRA YANG MR #: [id number] : 1940 Age/Sex: 77/F Req #: [id number] Adm Physician: JOSE BHAGAT MD Ordered by: JOSE BHAGAT MD Report #: [id number] Location: [facility] Room/Bed: [place] [address] Procedure: [id number] DX/CHEST 2 VIEWS Exam Date: 06/21/18 Exam Time: 1112 REPORT STATUS: Signed EXAMINATION: CHEST 2 VIEWS INDICATION: Anemia. COMPARISON: CT abdomen/pelvis 06/21/2018. Report from CT chest 04/25/2014, although images are not available for review. FINDINGS: TUBES and LINES: Left-sided dual-chamber pacemaker with leads overlying the right atrium and right ventricle. Multiple EKG leads and wires overlie the thorax. LUNGS: Lungs are well inflated. There are mild patchy opacities in the lung bases, left greater than right. Pulmonary nodules noted in the left lower lobe on abdominal CT from 06/21/2018 are not well seen by radiograph. No evidence of pulmonary edema. There is central vascular congestion. PLEURA: No pleural effusion or pneumothorax. HEART AND MEDIASTINUM: The cardiomediastinal silhouette is unremarkable. Atherosclerotic vascular calcifications. BONES AND SOFT TISSUES: No acute osseous abnormality. UPPER ABDOMEN: No free air under the diaphragm. Surgical clips project over the upper abdomen. IMPRESSION: Patchy opacities at the lung bases, left greater than right, which could represent atelectasis or pneumonia in the appropriate clinical context. Pulmonary nodules noted in the left lower lobe on abdominal CT from 06/21/2018 are not well seen by radiograph. A follow-up chest CT is suggested in 2-3 months to assess for resolution. Signed by: Dr. Milton Macias MD on 06/21/2018 12:10 PM Dictated By: MILTON MACIAS MD 1210 Transcribed By: ROBERT on 06/21/18 1210 COPY TO: JOSE BHAGAT MD CT ABDOMEN/PELVIS WO 2018-06-21 11:25:00 [place] [address] Patient Name: MIRA YANG MR #: [id number] : 1940 Age/Sex: 77/F Req #: [id number] Adm Physician: JOSE BHAGAT MD Ordered by: JOSE BHAGAT MD Report #: [id number] Location: [facility] Room/Bed: [place] [address] Procedure: [id number] CT/CT ABDOMEN/PELVIS WO Exam Date: 06/21/18 Exam Time: 1050 REPORT STATUS: Signed ADDENDUM #1 ADDENDUM: Multiple soft tissue nodules in the right upper quadrant of the abdomen, some of which contain coarse calcifications are indeterminate on this exam. However report from CT Chest on 07/14/2008 also mentions nodules at this location (although images are not available for review), and therefore likely of benign etiology. The patient is status post splenectomy. Findings could represent splenosis if there is a history of splenic trauma or intraoperative rupture. Consider dedicated contrast enhanced CT or MRI if clinically indicated. Signed by: Dr. Milton Macias MD on 06/23/2018 10:40 AM ORIGINAL REPORT EXAM: CT Abdomen and Pelvis WITHOUT contrast INDICATION: Anemia, suspected GI bleed. COMPARISON: None. TECHNIQUE: Abdomen and pelvis were scanned utilizing a multidetector helical scanner from the lung base to the pubic symphysis without administration of IV contrast. Absence of intravenous contrast decreases sensitivity for detection of focal lesions and vascular pathology. Coronal and sagittal reformations were obtained. Routine protocol was performed. IV CONTRAST: None. ORAL CONTRAST: Water RADIATION DOSE: Total DLP: 670.3 mGy*cm Dose modulation, iterative reconstruction, and/or weight based adjustment of the mA/kV was utilized to reduce the radiation dose to as low as reasonably achievable. COMPLICATIONS: None FINDINGS: LINES and TUBES: None. LOWER THORAX: Partially seen pacemaker leads. Coronary atherosclerosis. Trace bilateral pleural effusions, left greater than right. There are clustered dependent nodules in the left lower lobe base, measuring up to 6 mm on series 2, image 11. There is dependent atelectatic changes. There is consolidative opacity seen in the lingula with air bronchogram. There is a 3 mm nodule in the right lower lobe on image 3. HEPATOBILIARY: Subcentimeter left hepatic lobe lesion is too small to characterize, but likely represents a cyst. No biliary ductal dilation. Status post cholecystectomy. SPLEEN: Status post splenectomy. PANCREAS: No focal masses or ductal dilatation. ADRENALS: No adrenal nodules. Surgical clips are present adjacent to the bilateral adrenal glands, and there may have been partial bilateral adrenalectomies. KIDNEYS/URETERS: No hydronephrosis. There is a left mid renal surgical clip. Multiple right renal simple cysts. Other subcentimeter bilateral renal hypodensities are too small to characterize, but likely represent cysts. There is a hypodense lesion measuring 1.4 cm in the left mid pole with adjacent coarse calcification on series 2, image 26. GI TRACT: No abnormal distention, wall thickening, or evidence of bowel obstruction. PELVIC ORGANS/BLADDER: The bladder is unremarkable. The uterus is absent. LYMPH NODES: No lymphadenopathy. VESSELS: There is moderate atherosclerotic disease in the aorta and major arterial branches. PERITONEUM / RETROPERITONEUM: No free air or fluid. BONES/SOFT TISSUES: No suspicious lytic or blastic lesions. No acute bony abnormality. IMPRESSION: No CT evidence of hemorrhage within the abdomen or pelvis, however evaluation is limited in the absence of IV contrast. Trace bilateral pleural effusions. Clustered nodules in the left lower lobe and consolidative opacity in the lingula, suggestive of infectious process. A follow-up chest CT is suggested in 2-3 months to assess for resolution. Left midpole renal hypodensity with adjacent coarse calcification, which could represent a complex cyst. A renal ultrasound is suggested for further evaluation. Signed by: Dr. Milton Macias MD on 06/21/2018 12:03 PM Dictated By: MILTON MACAIS MD 1040 Transcribed By: ROBERT on 06/21/18 1203 COPY TO: JOSE BHAGAT MD
--- OUTSIDE RECORDS SUMMARY | 2019-02-25 10:24 | XMS REPORT | Summary of Care ---
Author Author [facility] Organization [facility] Address Unknown Phone Unavailable Care Team Providers Care Manager Reading Name Role Phone Fabien Man PCP Reason for Visit * Reason Comments Transition Of Care Encounter Details Care Team Description Date Type Department Melinda Stewart RN [address] [place] [id number] Transition Of Care 12/30/2018 Transition of [facility] Allergies Comments Active Allergy Reactions Severity Noted Date Meperidine Hcl Nausea and/or 12/24/2018 Vomiting Cyclobenzaprine Hcl Unknown - See Medium 12/24/2018 comments Amlodipine Besylate Unknown - See 12/26/2018 comments Penicillins Hives Medium 12/24/2018 documented as of this encounter (statuses as of 12/30/2018) Medications End Date Status Medication Sig Dispensed Refills Start Date Active DULoxetine 60 mg capsule Take 60 mg by 0 mouth. Active atorvastatin 40 mg tablet Take 40 mg by 0 mouth at 6 bedtime. Active Ifnnoevghu-Epnvkvspvw-HIJ 1 tablet 0 Z 40-10-25 mg per tablet daily. 9 Active latanoprost 0.005 % 0 ophthalmic drops 9 Active NOVOLOG U-100 INSULIN 24 Units 1 ASPART 100 unit/mL daily. 9 solution Active TRESIBA FLEXTOUCH U-200 62 Units 1 200 unit/mL (3 mL) InPn daily. 9 Active levothyroxine 175 mcg Cap Take 1 tablet 0 by mouth daily. Active apixaban 5 mg Take 1 tablet 60 tablet 0 tabletIndications: by mouth 2 9 Presence of Watchman left (two) times atrial appendage closure daily. device, Paroxysmal atrial fibrillation documented as of this encounter (statuses as of 12/30/2018) Active Problems Problem Noted Date CKD (chronic kidney disease) 12/27/2018 DM (diabetes mellitus) 12/27/2018 HTN (hypertension) 12/27/2018 Presence of Watchman left atrial appendage closure device 12/26/2018 Atrial fibrillation 12/26/2018 documented as of this encounter (statuses as of 12/30/2018) Social History Date Tobacco Use Types Packs/Day Years Used Never Assessed Sex Assigned at Date Recorded Not on file Industry Job Start Date Occupation Not on file Not on file Not on file Travel End Travel History Travel Start No recent travel history available. documented as of this encounter Last Filed Vital Signs Not on filedocumented in this encounter Plan of Treatment Health Maintenance Due Date Last Done Comments HgA1C 10/29/1941 EYE EXAM 1952 LDL-C 1952 URINE MICROALBUMIN 1952 FOOT EXAM 1960 DTaP,Tdap,and Td Vaccines 1961 (1 - Tdap) Zoster Recombinant 1992 Vaccine (SHINGRIX) (1 of 2) Medicare Wellness Visit 10/29/2007 Osteoporosis Screening 10/29/2007 PNEUMOCOCCAL VACCINES 65+ 10/29/2007 (1 of 2 - PCV13) INFLUENZA VACCINE (#1) 2018 CREATININE (SERUM) 12/28/2019 12/27/2018, 12/26/2018 documented as of this encounter Results Not on filedocumented in this encounter Insurance Type Payer Benefit Subscriber ID Effective Phone Address Plan / Dates Group Medicare MEDICARE MEDICARE xxxxxxxxxxx 2007-P [phone] [address] [id number] [place] [address] Medicare Supplement BCBS [facility] BCBS [id number] 2014-P [phone] [id number] [place] [address] documented as of this encounter
--- OUTSIDE RECORDS SUMMARY | 2019-02-25 10:24 | XMS REPORT | Summary of Care ---
Author Author [facility] - Health Organization [facility] - Health Address Unknown Phone Unavailable Care Team Providers Care Bankruptcy Assistant Name Role Phone Almaz Man PCP Reason for Referral * (Routine) Referred By Contact Referred To Contact Status Reason Specialty Diagnoses / Procedures Phuong Ronquillo MD [address] [address] Almaz Man [address] [place] [address] Closed Patient is Internal Diagnoses Established with a Medicine Presence of Specific Provider Watchman left atrial appendage closure device Paroxysmal atrial fibrillation P rocedures Discharge Follow-up: PCP ALMAZ MAN; 2 Weeks * (Routine) Referred By Contact Referred To Contact Status Reason Specialty Diagnoses / [place] [address] [address] New Request UNKNOWN Diagnoses PHYSICIAN Presence of SPECIALTY Watchman left atrial appendage closure device Paroxysmal atrial fibrillation P rocedures Discharge Follow-Up: Specialty Service UNKNOWN PHYSICIAN SPECIALTY; 2 Weeks Reason for Visit * Auth/Cert Referred By Contact Referred To Contact Status Reason Specialty Diagnoses / Procedures Clc [address]c [address] [place] [address] Surgery Diagnoses WATCHMAN P rocedures NM DOPPLER ECHO HEART,COMPLETE NM DOPPLER COLOR FLOW VELOCITY MAP NM ECHO TRANSESOPHAG R-T 2D W/PRB IMG ACQUISJ I&R Encounter Details Care Team Description Date Type [place] [address] [place] [address] [address] Raú[place] [address] [facility] Alejandro [address] [place] [address] [phone], Clc Field Professional Atrial fibrillation 12/26/2018 [facility] Intensive - Encounter Care Unit [facility] 4C 12/27/2018 [address] [place] [address] Allergies Comments Active Allergy Reactions Severity Noted Date Meperidine Hcl Nausea and/or 12/24/2018 Vomiting Cyclobenzaprine Hcl Unknown - See Medium 12/24/2018 comments Amlodipine Besylate Unknown - See 12/26/2018 comments Penicillins Hives Medium 12/24/2018 documented as of this encounter (statuses as of 12/27/2018) Medications End Date Status Medication Sig Dispensed Refills Start Date Active atorvastatin 40 mg tablet Take 40 mg by 0 mouth at 6 bedtime. Active Attfmvcwpd-Gnmgkztppi-TPE 1 tablet 0 Z 40-10-25 mg per tablet daily. 9 Active latanoprost 0.005 % 0 ophthalmic drops 9 Active NOVOLOG U-100 INSULIN 24 Units 1 ASPART 100 unit/mL daily. 9 solution Active TRESIBA FLEXTOUCH U-200 62 Units 1 200 unit/mL (3 mL) InPn daily. 9 Active apixaban 5 mg Take 1 tablet 60 tablet 0 tabletIndications: by mouth 2 9 Presence of Watchman left (two) times atrial appendage closure daily. device, Paroxysmal atrial fibrillation documented as of this encounter (statuses as of 12/27/2018) Active Problems Problem Noted Date CKD (chronic [...] Signs Reading Time Taken Comments Vital Sign 143/75 12/27/2018 4:30 PM CDT Blood Pressure 98 12/27/2018 3:00 PM CDT Pulse 36.8 C (98.2 F) 12/27/2018 12:00 PM CDT Temperature 27 12/27/2018 4:30 PM CDT Respiratory Rate 97% 12/27/2018 2:00 PM CDT Oxygen Saturation - - Inhaled Oxygen Concentration - - Weight - - Height - - Body Mass Index documented in this encounter Discharge Instructions * Instructions* Margoth Duong RN - 12/27/2018 Patient has to see her cardiology doctor in one week and PCP in two week * Attachments The following attachments cannot be sent through Care Everywhere.* About Arrhythmias (Singaporean) * Atrial Fibrillation, Discharge Instructions for (Singaporean) * Atrial Fibrillation, Understanding (Singaporean) * Atrial Flutter/Fibrillation, What Is (Singaporean) * Hypertension, New (Begin Treatment) (Singaporean) * High Blood Pressure, Established, Out of Control (Singaporean) * Hypertension, To Be Confirmed (Singaporean) * Stroke and Heart Disease (Singaporean) * Type 2 Diabetes, Managing (Singaporean) * Fibrillation, Atrial (Singaporean) * Diabetes, Diet (Singaporean) * Diabetes, General Information (Singaporean) * Apixaban oral tablets (Singaporean) * Living with Atrial Fibrillation: Preventing Stroke (Singaporean) documented in this encounter Progress Notes * Flavia Hernandez RN - 12/27/2018 10:19 AM CDT IYg Parul, MD, after reviewing this case with the Commercial Property Manager, I concur th is case is appropriate for inpatient admission. The change to inpatient admissio n is based on the level of care this patient is receiving, medical necessity, ri sks associated and the expected duration of stay. The inpatient admission order has been entered. Flavia Hernandez RN, MSN Utilization Review Nurse * Brittney Guerra MD - 12/27/2018 9:27 AM CDT Critical Care Medicine Progress Note Date of Service: 12/27/2018 ICU Day:2 Intubation Day0: Last 24 hour events (major events): No events overnight Subjective: 12 system ROS negative Lines (with dates): PIV Sanderson: None Intake/Output: Intake/Output Summary (Last 24 hours) at 12/27/2018 09 Last data filed at 12/26/2018 1522 Gross per 24 hour Intake 700 ml Output Net 700 ml Physical Exam: Temp: [36.5 C (97.7 F)-36.9 C (98.5 F)] Heart Rate (monitor): [69-110] Pulse: [74-110] Resp: [12-49] BP: (117-164)/(51-89) Arterial Line BP: (92-273)/(33-272) MAP (mmHg): [83-124] General: alert and oriented x 4 (person, place, date/time and situation); no miki arent distress, well developed, well nourished HEENT: normocephalic atraumatic, pupils equal, round, reactive to light Neck: full range of motion Lungs: clear to auscultation bilaterally Cardio: S1, S2 normal; no murmurs, rubs or gallops, regular rate and rhythm Abdomen: soft; non-tender; non-distended; normoactive bowel sounds : not examined Rectal: not examined Extremities: no clubbing, cyanosis, or edema Skin: no rashes Neuro: no focal deficits, alert and oriented x 3 Labs (pertinent only)/Imaging: Recent Results (from the past 24 hour(s)) Type and Screen - ONCE ALLIE Collection Time: 12/26/18 11:05 AM Result Value Ref Range ABO & RH O Positive IAT Negative BASIC METABOLIC PANEL (NA, K, CL, CO2, GLUCOSE, BUN, CREATININE, CA) Collection Time: 12/26/18 11:13 AM Result Value Ref Range NA 139 135 - 145 mmol/L K 4.1 3.5 - 5.0 mmol/L CL 110 (H) 98 - 108 mmol/L CO2 TOTAL 21 (L) 23 - 31 mmol/L AGAP 8 2 - 16 BUN 38 (H) 7 - 23 mg/dL GLUCOSE 119 (H) 70 - 110 mg/dL CREATININE 2.06 (H) 0.50 - 1.04 mg/dL CALCIUM 10.1 8.6 - 10.6 mg/dL eGFR Calculation (Non-) 23.4 mL/min/1.73m2 eGFR Calculation () 28.4 mL/min/1.73m2 CBC WITH DIFFERENTIAL Collection Time: 12/26/18 11:13 AM Result Value Ref Range WBC 13.07 (H) 4.30 - 11.10 10*3/L RBC 3.51 (L) 3.93 - 5.25 10*6/L HGB 11.1 (L) 11.6 - 15.0 g/dL HCT 33.5 (L) 35.7 - 45.2 % MCV 95.4 80.6 - 95.5 fL MCH 31.6 25.9 - 32.8 pg MCHC 33.1 31.6 - 35.1 g/dL RDW-SD 46.0 39.0 - 49.9 fL RDW-CV 13.2 12.0 - 15.5 % PLT 367 (H) 166 - 358 10*3/L MPV 11.5 9.5 - 12.9 fL NRBC/100 WBC 0.0 0.0 - 10.0 /100 WBCs NRBC x10^3 <0.01 10*3/L GRAN MAT (NEUT) % 50.1 % IMM GRAN % 0.30 % LYMPH % 37.1 % MONO % 8.0 % EOS % 3.7 % BASO % 0.8 % GRAN MAT x10^3(ANC) 6.55 1.88 - 7.09 10*3/uL IMM GRAN x10^3 0.04 0.00 - 0.06 10*3/uL LYMPH x10^3 4.85 (H) 1.32 - 3.29 10*3/uL MONO x10^3 1.04 (H) 0.33 - 0.92 10*3/uL EOS x10^3 0.49 (H) 0.03 - 0.39 10*3/uL BASO x10^3 0.10 (H) 0.01 - 0.07 10*3/uL PROTHROMBIN TIME / INR Collection Time: 12/26/18 11:34 AM Result Value Ref Range PROTIME PATIENT 10.9 10.1 - 12.6 Seconds INR 1.0 ABORH CONFIRMATION Collection Time: 12/26/18 11:35 AM Result Value Ref Range ABO & RH O Positive POCT ACT LOW RANGE Collection Time: 12/26/18 1:49 PM Result Value Ref Range ACTLR 281 (H) 89 - 169 Seconds CBC WITH DIFFERENTIAL Collection Time: 12/26/18 6:41 PM Result Value Ref Range WBC 15.93 (H) 4.30 - 11.10 10*3/L RBC 3.55 (L) 3.93 - 5.25 10*6/L HGB 11.4 (L) 11.6 - 15.0 g/dL HCT 34.7 (L) 35.7 - 45.2 % MCV 97.7 (H) 80.6 - 95.5 fL MCH 32.1 25.9 - 32.8 pg MCHC 32.9 31.6 - 35.1 g/dL RDW-SD 48.0 39.0 - 49.9 fL RDW-CV 14.0 12.0 - 15.5 % PLT 348 166 - 358 10*3/L MPV 12.1 9.5 - 12.9 fL NRBC/100 WBC 0.0 0.0 - 10.0 /100 WBCs NRBC x10^3 <0.01 10*3/L GRAN MAT (NEUT) % 87.5 % IMM GRAN % 0.40 % LYMPH % 10.1 % MONO % 0.7 % EOS % 0.9 % BASO % 0.4 % GRAN MAT x10^3(ANC) 13.92 (H) 1.88 - 7.09 10*3/uL IMM GRAN x10^3 0.07 (H) 0.00 - 0.06 10*3/uL LYMPH x10^3 1.61 1.32 - 3.29 10*3/uL MONO x10^3 0.11 (L) 0.33 - 0.92 10*3/uL EOS x10^3 0.15 0.03 - 0.39 10*3/uL BASO x10^3 0.07 0.01 - 0.07 10*3/uL BANDS Increased (A) LG GRAN LYMPHS Moderate (A) Rare Troponin I Collection Time: 12/27/18 4:43 AM Result Value Ref Range TROPONIN I 0.336 (H) <=0.034 ng/mL BASIC METABOLIC PANEL (NA, K, CL, CO2, GLUCOSE, BUN, CREATININE, CA) Collection Time: 12/27/18 4:43 AM Result Value Ref Range NA 137 135 - 145 mmol/L K 4.5 3.5 - 5.0 mmol/L CL 109 (H) 98 - 108 mmol/L CO2 TOTAL 19 (L) 23 - 31 mmol/L AGAP 9 2 - 16 BUN 45 (H) 7 - 23 mg/dL GLUCOSE 237 (H) 70 - 110 mg/dL CREATININE 1.87 (H) 0.50 - 1.04 mg/dL CALCIUM 9.3 8.6 - 10.6 mg/dL eGFR Calculation (Non-) 26.2 mL/min/1.73m2 eGFR Calculation () 31.7 mL/min/1.73m2 CBC WITH DIFFERENTIAL Collection Time: 12/27/18 4:43 AM Result Value Ref Range WBC 10.41 4.30 - 11.10 10*3/L RBC 3.32 (L) 3.93 - 5.25 10*6/L HGB 10.6 (L) 11.6 - 15.0 g/dL HCT 31.5 (L) 35.7 - 45.2 % MCV 94.9 80.6 - 95.5 fL MCH 31.9 25.9 - 32.8 pg MCHC 33.7 31.6 - 35.1 g/dL RDW-SD 44.7 39.0 - 49.9 fL RDW-CV 13.1 12.0 - 15.5 % PLT 347 166 - 358 10*3/L MPV 11.3 9.5 - 12.9 fL NRBC/100 WBC 0.0 0.0 - 10.0 /100 WBCs NRBC x10^3 <0.01 10*3/L GRAN MAT (NEUT) % 75.0 % IMM GRAN % 0.40 % LYMPH % 23.2 % MONO % 1.1 % EOS % 0.0 % BASO % 0.3 % GRAN MAT x10^3(ANC) 7.81 (H) 1.88 - 7.09 10*3/uL IMM GRAN x10^3 0.04 0.00 - 0.06 10*3/uL LYMPH x10^3 2.42 1.32 - 3.29 10*3/uL MONO x10^3 0.11 (L) 0.33 - 0.92 10*3/uL EOS x10^3 <0.03 (L) 0.03 - 0.39 10*3/uL BASO x10^3 0.03 0.01 - 0.07 10*3/uL No final results containing an impression from the past 2 days were found. Assessment/Plan: Shahla Lindquist is a 78 year old female Neuro: No active issues CV: A. Fib s/p Watchman procedures, now in nsr. Hemodynamically stable. On AC wi th Eliquis Respiratory: NITZA likely with STOP BANG screening positive, adviced on HSAT as ou tpatient given sleep clinic contact card. GI:No active issues :No active issues ID:No active issues Heme:On Ac with Eliquis Endo:No active issues MSK:No active issues Ventilator Bundle: Sedation/Analgesia + RASS: N/A Stress ulcer prophylaxis:N/A DVT prophylaxis: Apixaban Nutrition: Cardiac diet Code status: Full Disposition: Transfer out of ICU to telemetry Brittney Guerra MD * Kam Hoang FNP - 12/27/2018 9:11 AM CDT Brief Post-Watchman Procedure Progress Note Right groin suture removed without complications. Pt denies any pain to site. Si te clean, dry, soft, and without hematoma. Gauze and tegaderm placed. Wound care instructions and infection warning signs given to patient. Patient verbalized u nderstanding. Patient tolerated procedure well. CAT Beckett 12/27/2018 9:11 AM documented in this encounter Plan of Treatment Order Schedule Name Type Priority Associated Diagnoses STAT for 1 Occurrences starting 12/26/2018 until 12/26/2018 aPTT LAB STAT STAT for 1 Occurrences starting 12/26/2018 until 12/26/2018 Prothrombin Time / INR LAB STAT STAT for 1 Occurrences starting 12/26/2018 until 12/26/2018 Basic Metabolic Panel LAB STAT (NA, K, CL, CO2, Glucose, BUN, Creatinine, CA) STAT for 1 Occurrences starting 12/26/2018 until 12/26/2018 Magnesium Serum LAB STAT STAT for 1 Occurrences starting 12/26/2018 until 12/26/2018 Phosphorus Serum LAB STAT STAT for 1 Occurrences starting 12/26/2018 until 12/26/2018 Lactate Dehydrogenase LAB STAT STAT for 1 Occurrences starting 12/26/2018 until 12/26/2018 Respiratory Culture LAB STAT STAT for 1 Occurrences starting 12/26/2018 until 12/26/2018 Urine Culture LAB STAT STAT for 1 Occurrences starting 12/26/2018 until 12/26/2018 Lactic Acid Whole Blood LAB STAT STAT for 1 Occurrences starting 12/26/2018 Lactic Acid Whole Blood LAB Routine EVERY 8 HOURS (START TIME ADJUSTABLE) for 3 Occurrences starting 12/26/2018 until 12/27/2018, 1 completed Troponin I LAB ALLIE EVERY MORNING for 3 Days starting 12/26/2018 until 12/28/2018 EKG-12 LEAD ROUTINE HEART STATION Routine ONCE for 1 Occurrences starting 12/26/2018 until 12/26/2018 N-Terminal Pro-BNP LAB ALLIE ONCE for 1 Occurrences starting 12/26/2018 until 12/26/2018 PROCALCITONIN LAB ALLIE Health Maintenance Due Date Last Done Comments HgA1C 10/29/1941 EYE EXAM 1952 LDL-C 1952 URINE MICROALBUMIN 1952 FOOT EXAM 1960 DTaP,Tdap,and Td Vaccines 1961 (1 - Tdap) Zoster Recombinant 1992 Vaccine (SHINGRIX) (1 of 2) Medicare Wellness Visit 10/29/2007 Osteoporosis Screening 10/29/2007 PNEUMOCOCCAL VACCINES 65+ 10/29/2007 (1 of 2 - PCV13) INFLUENZA VACCINE (#1) 2018 CREATININE (SERUM) 12/27/2019 12/26/2018 documented as of this encounter Procedures Comments Procedure Name Priority Date/Time Associated Diagnosis CBC WITH DIFFERENTIAL Routine 12/27/2018 4:43 AM CDT CBC WITH DIFF Routine 12/27/2018 4:43 AM CDT BASIC METABOLIC PANEL ALLIE 12/27/2018 (NA, K, CL, CO2, GLUCOSE, 4:43 AM CDT BUN, CREATININE, CA) TROPONIN I ALLIE 12/27/2018 4:43 AM CDT CBC WITH DIFFERENTIAL STAT 12/26/2018 6:41 PM CDT CBC WITH DIFF STAT 12/26/2018 6:41 PM CDT MRSA / MSSA SCREEN BY ALLIE 12/26/2018 SHASHI WEBB 6:03 PM CDT POCT ACT LOW RANGE Routine 12/26/2018 2:18 PM CDT documented in this encounter Results * CBC WITH DIFFERENTIAL (12/27/2018 4:43 AM CDT) WBC 10.41 4.30 - 11.10 [facility] 10*3/L [facility] RBC 3.32 (L) 3.93 - 5.25 10*6/L [facility] HGB 10.6 (L) 11.6 - 15.0 g/dL [facility] HCT 31.5 (L) 35.7 - 45.2 % [facility] MCV 94.9 80.6 - 95.5 fL [facility] MCH 31.9 25.9 - 32.8 pg [facility] MCHC 33.7 31.6 - 35.1 g/dL [facility] RDW-SD 44.7 39.0 - 49.9 fL [facility] RDW-CV 13.1 12.0 - 15.5 % [facility] PLT 347 166 - 358 10*3/L [facility] MPV 11.3 9.5 - 12.9 fL [facility] NRBC/100 WBC 0.0 0.0 - 10.0 /100 WBCs [facility] NRBC x10^3 <0.01 10*3/L [facility] GRAN MAT (NEUT) 75.0 % [facility] % [facility] IMM GRAN % 0.40 % [facility] LYMPH % 23.2 % [facility] MONO % 1.1 % [facility] EOS % 0.0 % [facility] BASO % 0.3 % [facility] GRAN MAT 7.81 (H) 1.88 - 7.09 10*3/uL [facility] x10^3(ANC) [facility] IMM GRAN x10^3 0.04 0.00 - 0.06 10*3/uL [facility] LYMPH x10^3 2.42 1.32 - 3.29 10*3/uL [facility] MONO x10^3 0.11 (L) 0.33 - 0.92 10*3/uL [facility] EOS x10^3 <0.03 (L) 0.03 - 0.39 10*3/uL [facility] BASO x10^3 0.03 0.01 - 0.07 10*3/uL [facility] Specimen Blood - ARM, RIGHT Performing Organization Address City/State/Zipcode Phone Number [facility] CLIA: [id number], [address] [place] [address] [facility] * BASIC METABOLIC PANEL (NA, K, CL, CO2, GLUCOSE, BUN, CREATININE, CA) (12/27/2018 4:43 AM CDT) NA 137 135 - 145 mmol/L [facility] K 4.5 3.5 - 5.0 mmol/L [facility] CL 109 (H) 98 - 108 mmol/L [facility] CO2 TOTAL 19 (L) 23 - 31 mmol/L [facility] AGAP 9 2 - 16 [facility] BUN 45 (H) 7 - 23 mg/dL [facility] GLUCOSE 237 (H) 70 - 110 mg/dL [facility] CREATININE 1.87 (H) 0.50 - 1.04 mg/dL [facility] CALCIUM 9.3 8.6 - 10.6 mg/dL [facility] eGFR 26.2 mL/min/1.73m2 [facility] Calculation [facility] (Non[facility]) eGFR 31.7 mL/min/1.73m2 [facility] Calculation [facility] [place]) Specimen Blood - ARM, RIGHT Narrative Performed At Association of Glomerular Filtration Rate (GFR) and Staging of Kidney Disease* [facility] + + + + SERVICES- [place] | GFR (mL/min/1.73 m2)| With Kidney Damage|Without [...] tests). Performing Organization Address City/State/Zipcode Phone Number [facility] CLIA: [id number], [address] [place] [address] [facility] * Troponin I (12/27/2018 4:43 AM CDT) TROPONIN I 0.336 (H) <=0.034 ng/mL [facility] Specimen Blood - ARM, RIGHT Narrative Performed At Equal or Less than 0.034 ng/ml---Normal [facility] Note: Cardiac troponin begins to rise 3-4 hours after the onset of ischemia. [facility] Repeat in 4-6 hours if the sample was drawn within 3-4 hours of the onset of the [place] symptom and found normal. Between 0.035 and 0.120 ng/mL--- Borderline. Questionable myocardial injury or necrosis Note: Serial measurement may be necessary to confirm or exclude the diagnosis of myocardial injury or necrosis; Clinical correlation (symptoms, EKGs, imaging studies, and others) required; Repeat in 4-6 hours if clinically indicated. Equal or Higher than 0.121 ng/mL---Abnormal. Myocardial Injury or Necrosis Likely Biotin has been reported to cause a negative bias, interpret results relative to patient's use of biotin. Performing Organization Address City/State/[facility] Phone Number [facility] CLIA: [id number], [address] [place] [address] [facility] * CBC WITH DIFFERENTIAL (12/26/2018 6:41 PM CDT) WBC 15.93 (H) 4.30 - 11.10 [facility] 10*3/L [facility] RBC 3.55 (L) 3.93 - 5.25 10*6/L [facility] HGB 11.4 (L) 11.6 - 15.0 g/dL [facility] HCT 34.7 (L) 35.7 - 45.2 % [facility] MCV 97.7 (H) 80.6 - 95.5 fL [facility] MCH 32.1 25.9 - 32.8 pg [facility] MCHC 32.9 31.6 - 35.1 g/dL [facility] RDW-SD 48.0 39.0 - 49.9 fL [facility] RDW-CV 14.0 12.0 - 15.5 % [facility] PLT 348 166 - 358 10*3/L [facility] MPV 12.1 9.5 - 12.9 fL [facility] NRBC/100 WBC 0.0 0.0 - 10.0 /100 WBCs [facility] NRBC x10^3 <0.01 10*3/L [facility] GRAN MAT (NEUT) 87.5 % [facility] % [facility] IMM GRAN % 0.40 % [facility] LYMPH % 10.1 % [facility] MONO % 0.7 % [facility] EOS % 0.9 % [facility] BASO % 0.4 % [facility] GRAN MAT 13.92 (H) 1.88 - 7.09 10*3/uL [facility] x10^3(ANC) [facility] IMM GRAN x10^3 0.07 (H) 0.00 - 0.06 10*3/uL [facility] LYMPH x10^3 1.61 1.32 - 3.29 10*3/uL [facility] MONO x10^3 0.11 (L) 0.33 - 0.92 10*3/uL [facility] EOS x10^3 0.15 0.03 - 0.39 10*3/uL [facility] BASO x10^3 0.07 0.01 - 0.07 10*3/uL [facility] BANDS Increased (A) [facility] LG GRAN LYMPHS Moderate (A) Rare [facility] Specimen Blood - ARM, RIGHT Performing Organization Address City/[facility] Phone Number [facility] CLIA: [id number], [address] [place], [place] [address] [facility] * MRSA / MSSA Screen by PCR, Nares (12/26/2018 6:03 PM CDT) MRSA Screen by Negative Negative [facility] PCR, Nares SERVICES MSSA Screen by Positive (A) Negative [facility] PCR, Nares SERVICES MRSA/MSSA Yes (A) No [facility] Positive? SERVICES Specimen Swab - NARES, BOTH SIDES Narrative Performed At A positive test result does not necessarily indicate the presence of viable [facility] organism. SERVICES Performing Organization Address [facility] Phone Number [facility] CLIA: [id number], [address] [place] [address] [facility] * POCT ACT LOW RANGE (12/26/2018 2:18 PM CDT) ACTLR 152 89 - 169 Seconds [facility] SERVICES Specimen Blood Performing Organization Address [facility] Phone Number [facility] CLIA: [id number], [address] [place] [id number] [facility] documented in this encounter Visit Diagnoses Diagnosis Presence of Watchman left atrial appendage closure device - Primary Paroxysmal atrial fibrillation Atrial fibrillation Atrial fibrillation CKD (chronic kidney disease) Chronic kidney disease, unspecified DM (diabetes mellitus) Type II or unspecified type diabetes mellitus without mention of complication, not stated as uncontrolled HTN (hypertension) Unspecified essential hypertension documented in this encounter Administered Medications Action Date Dose Rate Site Medication Order ROCKY Mccormack apixaban (ELIQUIS) tablet 5 mg 5 mg, Oral, BID, First dose on Sun12/27/18 at 2000, Until Discontinued, Routine dextrose 50 % in water (D50W) injection 25 mL 25 mL, Slow IV Push, PRN, Starting Sun12/26/18 at 1702, Until Discontinued, ALLIE, Blood Glucose < or=70 mg/dL and patient is unable to swallow or has mental status changes. glucagon (GLUCAGEN DIAGNOSTIC KIT) injection 1 mg 1 mg, Intramuscular, PRN, Starting Sun12/26/18 at 1702, Until Discontinued, ALLIE, Blood Glucose < or=70 mg/dL and patient is unable to swallow or has mental changes. ipratropium-albuterol (DUONEB) 0.5 mg-3 mg(2.5 mg base)/3 mL nebulizer solution 3 mL 3 mL, Inhalation, Q4HPRN, Starting Sun12/26/18 at 1844, Until Discontinued, Routine, Wheezing Action Date Dose Rate Site Medication Order ROCKY Action 12/26/2018 10:58 PM CDT 650 mg acetaminophen (TYLENOL) tablet 650 mg Given 650 mg, Oral, ONCE, 1 dose, Sun12/26/18 at 1715, Routine 12/27/2018 1:30 PM CDT 10 mg amLODIPine (NORVASC) tablet 10 mg Given 10 mg, Oral, ONCE, 1 dose, Sun12/27/18 at 1415, Routine 12/27/2018 1:30 PM CDT 5 mg apixaban (ELIQUIS) tablet 5 mg Given 5 mg, Oral, ONCE NOW, 1 dose, Sun12/27/18 at 1300, Routine 12/27/2018 8:57 AM CDT 5,000 Units Abdomen heparin injection 5,000 Units Given 5,000 Units, Subcutaneous, Q12H, First dose on Sun12/26/18 at 2000, Until Discontinued, Routine 5,000 Units Abdomen-SC Given 12/26/2018 10:58 PM CDT documented in this encounter Insurance Type Payer Benefit Subscriber ID Effective Phone Address Plan / Dates Group Medicare MEDICARE MEDICARE xxxxxxxxxxx 2007-P [phone] resent [id number] [place] [id number] Medicare Supplement [facility] BC [id number] 2014-P [id number] [place] [address] documented as of this encounter"
--- OUTSIDE RECORDS SUMMARY | 2019-02-25 10:24 | XMS REPORT | Summary of Care ---
Author Author Rodolfo Carter, Josey Organization Unknown Address [facility] Phone Unavailable Care Team Providers Care Patient Experience Coordinator Name Role Phone NGOZI Newman, JAYY Unavailable Unavailable TRICIA Chowdary, NIKO Unavailable Unavailable JOJO Kevin, EVA Unavailable Unavailable Rodolfo Carter, Josey Unavailable Unavailable TRISTON Kevin, JOESLINE Unavailable Unavailable DAYDAY PALMA LA, ALMAZ BOSS Unavailable Unavailable BACILIO PALMA, DERIK Martinez Unavailable Unavailable DAYDAY Kevin, ALMAZ Unavailable Unavailable DELVIN BONILLA, ENOC Unavailable Unavailable Unavailable Unavailable Functional Status Name Dates Details Functional status health issues are not documented Status: Name Dates Details Cognitive status health issues are not documented Status: Problems Name Dates Details RBBB (right bundle branch block) (426.4, I45.10) Status: Active Osteopenia (733.90, M85.80) Status: Active History of diverticulitis of colon (V12.79, Z87.19) Status: Resolved History of Community acquired pneumonia (486, J18.9) Status: Resolved 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, 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 Visual field defect (368.40, H53.40) Status: Active Postmenopausal symptoms (627.9, N95.9) Status: Active Moderate persistent asthma, uncomplicated (493.90, J45.40) Status: Active Forgetfulness (780.99, R68.89) Status: Active DOPS (diffuse obstructive pulmonary syndrome) (496, J44.9) Status: Active Diabetes mellitus type 2, uncontrolled (250.02, E11.65) Status: Active 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, 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, G56.02) Status: Active Breast cancer screening (V76.10, Z12.39) Status: Active Wilhelm's cyst, 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, 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: Active Anemia (285.9, D64.9) Status: Active Abnormal liver enzymes (790.5, R74.8) Status: Active Essential (primary) hypertension (401.9, I10) Status: Active Flu vaccine need (V04.81, Z23) Status: Active 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, E03.4) Status: Active Lymphedema (457.1, I89.0) Status: Active Mixed hyperlipidemia (272.2, E78.2) Status: Active Non compliance with medical treatment (V15.81, Z91.19) Status: Active NITZA on CPAP (327.23, G47.33) Status: Active Pacemaker (V45.01, Z95.0) Status: Active Ocular migraine (346.80, G43.109) Status: Active Primary open angle glaucoma of both eyes, mild stage (365.11, H40.1131) Status: Active Recurrent low back pain (724.2, M54.5) Status: Active Stage 3 chronic kidney disease (585.3, N18.3) Status: Active Stroke of unknown cause (434.91, I63.9) Status: Active Psychophysiological insomnia (307.42, F51.04) Status: Active Medications Name Dates Details DULoxetine HCl - 60 MG Oral Capsule Delayed Release Particles TAKE 1 CAPSULE DAILY Quantity: 90 CLARKE N.P., NIKO * Start : 19-May-2013 Active Dvsgvhhtbf-bkLESVXxzd-HNAR 40-10-25 MG Oral Tablet TAKE 1 TABLET DAILY. * Quantity: 90 Refills: 1 CLARKE N.P., NIKO * Start : 11-Mar-2018 Active Furosemide 40 MG Oral Tablet TAKE 1 TABLET BY MOUTH EVERY DAY * Quantity: 90 Refills: 1 CLARKE N.P., NIKO * Start : 18-Feb-2014 Active Levalbuterol HCl - 1.25 MG/0.5ML Inhalation Nebulization Solution INHALE 1 VIAL 4 times daily DX ACUTE ASTHMATIC BRONCHITIS * Quantity: 3 Refills: 1 CLARKE N.P., NIKO * Start : 15-Apr-2014 Active 30 Unit Plas Cont Atorvastatin Calcium 40 MG Oral Tablet TAKE 1 TABLET DAILY * Quantity: 1 Refills: 1 CLARKE N.P., NIKO * Start : 13-May-2014 Active 90 Tablet Bottle Montelukast Sodium 10 MG Oral Tablet TAKE 1 TABLET BY MOUTH AT BEDTIME. * Quantity: 90 Refills: 1 CLARKE N.P., NIKO * Start : 04-Jun-2014 Active BD Pen Needle Elodia U/F 32G X 4 MM For insulin injections 5x per day and as needed for high sugars. * Quantity: 5 Refills: 2 EVA URIBE M.D. * Start : 05-Oct-2015 Active 100 Miscellaneous Box Acetaminophen-Codeine #3 300-30 MG Oral Tablet TAKE [...] A DAY * Quantity: 1 Refills: 1 NIKO CLARKE N.P. * Start : 29-Jun-2017 Active 30 x 2 ML Plas Cont Hydrocortisone 2.5 % External Ointment Apply and gently massage into affected area twice daily. * Quantity: 1 Refills: 1 JAYY SOLIS * Start : 21-Aug-2017 Active 20 GM Tube OneTouch Verio In Vitro Strip use to check blood sugar 3x/day before meals * Quantity: 3 Refills: 1 JOSELINE GOLDSTEIN M.D. * Start : 28-Nov-2017 Active 100 Strip Box OneTouch Delica Lancets Fine use to check blood sugar 3x/day before meals * Quantity: 3 Refills: 1 JOSELINE GOLDSTEIN M.D. * Start : 28-Nov-2017 Active 100 Unit Box NovoLOG FlexPen 100 UNIT/ML Subcutaneous Solution Pen-injector [...] 09-Feb-2018 Active 3 x 3 ML Pen Ferrous Sulfate 325 (65 Fe) MG Oral Tablet TAKE 1 TABLET DAILY. * Quantity: 90 Refills: 0 TRICIA N.P., NIKO * Start : 26-Jun-2018 Active Levothyroxine Sodium 175 MCG Oral Tablet * Refills: 0 CLARKE N.P., NIKO Active Allergies and Adverse Reactions Name Dates Details Demerol SOLN (Allergy) Status: Active Flexeril TABS (Allergy) Status: Active Norvasc TABS (Allergy) Status: Active Penicillins (Allergy) Status: Active Past Medical History Name Dates Details History of Abnormal blood level of mineral (790.6, R79.0) Status: Resolved History of Acute asthmatic bronchitis (493.90, J45.909) Status: Resolved History of Acute bacterial bronchitis (466.0, J20.8) Status: Resolved History of Acute pain of right knee (719.46, M25.561) Status: Resolved History of Acute upper respiratory infection (465.9, J06.9) Status: Resolved History of anemia (V12.3, Z86.2) Status: Resolved History of Aseptic necrosis of bone of hip, 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, 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) Status: Resolved History of Bilateral Adrenal Hyperplasia (255.2) Status: Resolved History of bradycardia (V12.50, Z86.79) Status: Resolved History of Evelyn albicans infection (112.9, B37.9) Status: Resolved History of Candidal intertrigo (112.3, B37.2) Status: Resolved History of Candidal skin infection (112.3, B37.2) Status: Resolved History of Community acquired pneumonia (486, J18.9) Status: Resolved History of dermatitis (V13.3, Z87.2) Status: Resolved History of Diarrhea of presumed infectious origin (009.3, R19.7) Status: Resolved History of diverticulitis of colon (V12.79, Z87.19) Status: Resolved History of essential hypertension (V12.59, Z86.79) Status: Resolved History of fatigue (V13.89, Z87.898) Status: Resolved History of Foot pain (729.5, M79.673) Status: Resolved History of Hospital discharge follow-up (V67.59, Z09) Status: Resolved History of Left knee pain (719.46, M25.562) Status: Resolved History of Limb pain (729.5, M79.609) Status: Resolved History of Localized primary osteoarthritis of lower leg, left (715.16, M17.12) Status: Resolved History of Lung Cancer (V10.11) Status: Resolved History of Mouth ulcers (528.9, K12.1) Status: Resolved History of Need for hepatitis C screening test (V73.89, Z11.59) Status: Resolved History of Non-intractable cyclical vomiting with nausea (536.2, G43.A0) Status: Resolved History of Numbness and tingling in both hands (782.0, R20.0) Status: Resolved History of Osteoarthritis of one hip, right (715.95, M16.11) Status: Resolved History of Other fatigue (780.79, R53.83) Status: Resolved History of persistent cough (V12.69, [...] (transient ischemic attack) (V12.54, Z86.73) Status: Resolved History of Wheezing on auscultation (786.07, R06.2) Status: Resolved Procedures Procedure Dates Details History of Splenectomy Completed History of Laminectomy Cervical Completed History of Total Abdominal Hysterectomy Completed History of Appendectomy Completed History of Cataract Surgery Completed History of Cholecystectomy Completed History of Adrenal surgical procedure Completed History of Pacemaker Permanent Placement Completed Immunization Name Dates Details Fluzone INJ Lot #: [id number] on: 09-Jan-2013 Fluzone INJ Lot #: [id number] on: 08-Jan-2014 Prevnar 13 Intramuscular Suspension Lot #: [id number] on: 24-Nov-2014 Fluzone Preservative Free 0.5 ML EMILY Lot #: [id number] on: 20-Jan-2015 Fluzone High-Dose 0.5 ML Intramuscular Suspension Prefilled Syringe Lot #: [id number] on: 18-Jan-2016 Fluzone High-Dose 0.5 ML Intramuscular Suspension Prefilled Syringe Lot #: [id number] on: 06-Feb-2017 Pneumovax 23 25 MCG/0.5ML Injection Injectable Lot #: [id number] on: 20-Feb-2017 Fluzone High-Dose 0.5 ML Intramuscular Suspension Prefilled Syringe Lot #: [id number] on: 18-Feb-2018 Family History Name Dates Details Family history of diabetes mellitus (V18.0, Z83.3) Status: Active Name Dates Details Family history of diabetes mellitus (V18.0, Z83.3) Status: Active Social History Name Dates Details - Status: Name Dates Details Never smoker Vital Signs Date Test Result Details [id number] BP Systolic 157 mm[Hg] Status: Comments: Location: LUE; Position: Sitting BP Diastolic 79 mm[Hg] Status: Comments: Location: LUE; Position: Sitting Height 62 in Status: Weight 162.3125 lb Status: Body Mass Index Calculated 29.69 kg/m2 Status: Body Surface Area Calculated 1.75 m2 Status: Temperature 97.9 f Status: Comments: Method: Temporal Heart Rate 89 /min Status: Respiration Rate 16 /min Status: Physical Findings 0 Status: Comments: Alcohol Screen - How many times in the past yr have you had 5 (for M) or 4 (for F) or 4 (for all > 65yrs) or more drinks in a day? Physical Findings 3 Status: Comments: PHQ-9 Adult Depression Screening Results Date Description Value Details :00 [O] Hemoglobin A1c (in office) HEMOGLOBIN A1c 9.0% (Abnormal) :00 Negative Retinal Eye Exam (Diabetic) Negative Diabetic Eye Screening [id number] Tanisha - SCR MAMM BILATERAL SURY CAD DIGITAL SCR MAMM BILATERAL SURY CAD DIGITAL - SCR MAMM BILATERAL SURY CAD DIGITALBILATERAL DIGITAL SCREENING MAMMOGRAM 3D/2D WITH CAD: 12/20/2018CLINICAL: Asymptomatic. Digital breast tomosynthesis was performed in addition to routine CC and MLO v iews. Current mammographic images were evaluated by either a abusix M-Vu or a PeerIndex ImageChecker CAD (computer aided detection system). Comparison is made to exams dated 06/18/2017 mammogram, 05/23/2016 mammogram, and 12/08/2013 mammogram - [facility]-. There are scattered fibroglandular tissues in both [...] annual screening mammography in one year. Vincent arellanog/penrad:12/23/2018 12:23:05 Sales And Service Technician: Justina FAROOQ, [facility]-letter sent: BIRADS 1-2 Normal Mammogram BI-RADS: 2 [email or web address] Plan of Care Name Dates Details Planned Observations Planned Goals not documented Planned Encounters Appointment; ENOC HARGROVE On: 08-Jan-2019 14:15 Instructions Name Dates Details Instructions not documented [...] documented On: 07-Aug-2017 17:00 Appointment; JAYY MELVIN PHaliAHali Encounter Diagnosis: Problem not documented On: 20-Aug-2017 14:30 Appointment; JAYY MELVIN PHaliAHali Encounter Diagnosis: Problem not documented On: 27-Aug-2017 [...] Diagnosis: Problem not documented On: 01-Apr-2018 14:15 Appointment; JAYY MELVIN PHaliAHali Encounter Diagnosis: Problem not documented On: 11-Jul-2018 14:00 Appointment; SHANIKA BARKER M.D. Encounter Diagnosis: Problem not documented On: 02-Dec-2018 10:15 Appointment; NIKO CLARKE NP Encounter Diagnosis: Problem not documented On: 10-Dec-2018 14:00
--- NOTE | 2019-02-25 11:05 | NUR ---
1047 - pt received for KAMRON, placed on bedside monitoring. pt positioned for procedure. IV site patent to Right hand, VS stable Afib r rhythm 1052 - all responsible staff present, Timeout performed 1052 - hurricaine spray (spray 1) to oral cavity by XX 1054 - hurricaine spray (spray 2) to oral cavity by XX 1055 - bite block positioned and KAMRON probe passed 1100 - KAMRON probe removed , no gross trauma or distress observed 1103 - pt taken to ACU 7 for further recovery
[2019-02-25 11:15] VITALS: BP 153/94
[2019-02-25 11:30] VITALS: BP 154/94
[2019-02-25 11:45] VITALS: BP 153/88
--- NOTE | 2019-02-25 11:45 | NUR ---
Pt meets DC criteria. Oral cavity assessed for s/s of complication and presence of hematoma. General overall skin warm, dry, no discolor, and pulses present. IV removed from right hand. Distal tip appears intact. VS WNL. Pt denies pain, sob, or need at this time. Family at bedside. Review of discharge paperwork and follow up instructions. verbalized understanding. Reinforced NPO till 1300. Pt to wheelchair and transported to front of hospital. Transferred to private vehicle under own strength w/o incident with DC paperwork in hand. - cgf
== END | disposition home or self-care (01) ==
LOC: CATH LAB 09:49
PROVIDERS: ATTEND Internal Medicine Interventional Cardiology
DX: I48.91 Unspecified atrial fibrillation (principal); I10 Essential (primary) hypertension; E11.9 Type 2 diabetes mellitus without complications; E03.9 Hypothyroidism, unspecified; N20.0 Calculus of kidney; Z88.6 Allergy status to analgesic agent; Z88.0 Allergy status to penicillin; Z88.8 Allergy status to other drugs, medicaments and biological substances; Z01.812 Encounter for preprocedural laboratory examination; Z79.02 Long term (current) use of antithrombotics/antiplatelets; Z79.4 Long term (current) use of insulin
CPT/HCPCS: 36415 ×2; 80053; 82948; 85025; 93307; 93312; 93320; 93325; J2250; J2704; J7030

== ENCOUNTER → 2021-06-25 | Outpatient (CLI) | payer MEDICARE, BC ==
[~2021-06-25] MED LIST changes: +ASPIRIN325 MG PO; -BENZOCAINE 20% SPR 60 ML CAN ONE; +BUMETANIDE1 MG PO; +GABAPENTIN100 MG PO; +HYDRALAZINE HCL25 MG PO; -KETAMINE HCL INJ 50 MG/ML 10 ML VIAL ONE; -MIDAZOLAM HCL 2 MG/2 ML VIAL ONE; +NIFEDIPINE ER30 M1 PO; -PROPOFOL IV EMULSION 10 MG/ML 20 ML VIAL ONE; -SODIUM CHLORIDE 0.9% 1000ML 1,000 ML ONE
== END ==
LOC: RAD 12:15
PROVIDERS: ATTEND Internal Medicine Nephrology
DX: R06.00 Dyspnea, unspecified (principal); J90 Pleural effusion, not elsewhere classified; R06.2 Wheezing
CPT/HCPCS: 71046